=== PATIENT | male | born 1975 | race African-American/Black ===

== ENCOUNTER 2017-11-26 02:36 | Inpatient (IN) | payer OTHER ==
[2017-11-26] MEDS ORDERED: Pantoprazole 40 MG VIAL ONE (03:20)
[2017-11-26] MEDS ORDERED: Water For Inject, Bacteriostat 30 ML ONE (03:20)
[2017-11-26] MEDS ORDERED: Labetalol HCl 100 MG/20 ML VIAL ONE ×2 (03:20→06:41)
[2017-11-26] MEDS ORDERED: Metoclopramide HCl 10 MG/2 ML VIAL ONE ×2 (03:20→11:47)
[2017-11-26 03:51] LABS: CO2 Tension (PvCO2) 41.8 mmHg (41.0-51.0); O2 Tension (PvO2) 63.4 mmHg (35.0-45.0); pH (Venous) 7.325 (7.35-7.45)
[2017-11-26 03:52] LABS: Bicarbonate (HCO3v) 21.8 mmol/L (1.0-85.0)
[2017-11-26 03:53] LABS: Hemoglobin - Calc 8.9 g/dL (12.0-18.0); Potassium 4.5 mmol/L (3.4-4.7); T. Carbon Dioxide 23.1 mmol/L (1.0-85.0); vO2 Saturation-calc 90.1 % (94-98)
[2017-11-26 03:54] LABS: Calcium, Ionized 1.14 mmol/L (1.12-1.32)
[2017-11-26 04:01] LABS: ALT (SGPT) 15 U/L (8-55); AST (SGOT) 20 U/L (5-34); Albumin 3.5 g/dL (3.5-5.0); Alkaline Phosphatase 83 U/L (40-150); Anion Gap 12 mmol/L (10-20); BUN (Urea Nitrogen) 45 mg/dL (8.9-20.6); Bilirubin, Total 0.5 mg/dL (0.2-1.2); CK (CPK) 666 U/L (30-200); Calc. Creatinine Clearance 0 mL/min (70-130); Calcium 8.4 mg/dL (7.8-10.44); Carbon Dioxide 20 mmol/L (22-29); Chloride 110 mmol/L (98-107); Estimated GFR-MDRD 14; Globulin 3.2 g/dL (2.4-3.5); Glucose 126 mg/dL (70-105); Lipase 57 U/L (8-78); Potassium 4.6 mmol/L (3.5-5.1); Protein, Total 6.7 g/dL (6.0-8.3); Sodium 137 mmol/L (136-145)
[2017-11-26 04:02] LABS: Troponin I 0.022 ng/mL (< 0.028)
[2017-11-26 04:05] LABS: Band 1 % (5-11); Hemoglobin 8.8 g/dL (14.0-18.0); Lymphocytes 19 % (21-51); MDiff Complete? YES; Mean Corpuscular HGB CONC 33.3 g/dL (32.0-36.0); Mean Corpuscular Hemoglobin 27.5 pg (27.0-31.0); Mean Corpuscular Volume 82.7 fl (80.0-94.0); Mean Platelet Volume 5.9 fL (7.4-10.4); Monocytes 4 % (0-10); Neutrophil 76 % (42-75); Ovalocytes SLIGHT = 2-5 cells (100X) (0-1/hpf); Platelet Count 227 thou/uL (130-400); Red Blood Cell (RBC) Count 3.21 mill/uL (4.70-6.10); White Blood Cell (WBC) Count 8.2 thou/uL (4.8-10.8)
[2017-11-26 04:06] LABS: CKMB 7.3 ng/mL (0-6.6)
[2017-11-26] MEDS ORDERED: Acetaminophen 325 MG TAB PO PRN (07:07)
[2017-11-26] MEDS ORDERED: Ondansetron HCl/PF 4 MG/2 ML Vial IVP PRN (07:07)
[2017-11-26] MEDS ORDERED: HumaLOG 300 UNITS/3 ML VIAL SC PRN (07:09)
[2017-11-26] MEDS ORDERED: Dextrose 50% Abboject 50 ML SYRINGE SLOW IVP PRN (07:09)
[2017-11-26] MEDS ORDERED: Labetalol HCl 100 MG/20 ML VIAL SLOW IVP PRN (07:09)
[2017-11-26] MEDS ORDERED: Dextrose 5% in Water 1,000 ML IV PRN (07:09)
--- NOTE | 2017-11-26 07:28 | PDOC.FPRHP ---
- History of Present Illness Chief Complaint: n/v, abdominal pain History of Present Illness: Michael Montano is a 42 yo with PMH of HTN, Type I DM, and CKD stage 4 who presents as a direct admit from the [facility] ER. Patient started having symptoms of nausea and vomiting and abdominal pain 4 days ago. He went to the [facility] where he was treated and discharged yesterday. His symptoms have continued since discharge from hospital so he went to the [facility] ER today. States that his abdominal pain is location in the middle quadrant, does not radiate. Characterizes it as dull aching pain that is constant, rated as 4/10. Worse with eating. States that when he tries to eat food, he feels like the food gets stuck, he becomes nauseated and vomits. He states that he tolerated PO liquid fine. He has had decreased appetite over the last few days. He denies fevers, chest pain, dyspnea, changes in bowel habits, GI bleeding. ED Course: Received reglan, 1L NS, labetalol 10 mg IV, and protonix 40 mg IV in the the [facility] er - Allergies/Adverse Reactions Allergies Allergy/AdvReac Type Severity Reaction Status Date / Time No Known Drug Allergies Allergy Verified 11/26/17 07:30 - Home Medications Medication Instructions Recorded Confirmed Type Lisinopril 20 mg PO DAILY 09/12/13 11/26/17 History NovoLOG Mix 70/30 Flexpen 20 units SC TID-WM 09/12/13 11/26/17 History Amlodipine [Norvasc] 5 mg PO DAILY 11/26/17 11/26/17 History Insulin Glargine,Hum.Rec.Anlog 40 unit SQ QAM 11/26/17 11/26/17 History [Lantus Solostar] Metoprolol Succinate 25 mg PO DAILY 11/26/17 11/26/17 History - History PMHx: CKD stage 4, HTN, Type I DM PSHx: 2 cataract surgeries, Left great toe and left second toe amputation FHx: unknown Social: denied - Review of Systems General: reports: weight/appetite/sleep changes. denies: fever/chills, night sweats Eyes: denies: eye pain, vision changes ENT: denies: nasal congestion, rhinorrhea Respiratory: denies: cough, congestion, shortness of breath, exercise intolerance Cardiovascular: denies: chest pain, palpitation, edema, paroxysmal nocturnal dyspnea Gastrointestinal: reports: nausea, vomiting, abdominal pain. denies: diarrhea, constipation, GI bleeding Genitourinary: denies: incontinence, dysuria, polyuria Skin: denies: rashes, lesions, jaundice Musculoskeletal: denies: pain, tenderness, stiffness, swelling, arthritis/ arthralgias Neurological: denies: numbness, syncope, seizure Psychological: denies: anxiety, depression - Vital signs BP: 191/99 HR: 94 RR: 18 Tmax: 98.7 Pox: 95% on RA Wt: - Physical Exam Constitutional: NAD, awake, alert and oriented, well developed HEENT: normocephalic and atraumatic, EOMI, conjunctiva clear, no scleral icterus , grossly normal vision, TM's clear and intact, grossly normal hearing, normal nasal mucosa, MMM, oropharynx clear -HEENT: pinpoint pupils Neck: supple, FROM, trachea midline, no JVD Chest: no-tender to palpation Heart: RRR, normal S1/S2, no murmurs/rubs/gallops, pulses present Lungs: CTAB, no respiratory distress, good air movement, no rales/rhonchi, no wheezing Abdomen: soft, non-tender (adbomen had mild TTP, worse in middle quadrant), bowel sounds present, no masses/distention Musculoskeletal: normal structure, normal tone, ROM grossly normal Neurological: no focal deficit, CN II-XII intact, normal sensation Skin: no rash/lesions, good turgor, capillary refill <2 seconds Heme/Lymphatic: no unusual bruising or bleeding, no purpura Psychiatric: normal mood and affect, good judgment and insight, intact recent and remote memory FMR H&P: Results - Labs Result Diagrams: 11/26/17 03:30 11/26/17 03:30 Lab results: WBC 8.2 thou/uL (4.8-10.8) 11/26/17 03:30 Hgb 8.8 g/dL (14.0-18.0) L 11/26/17 03:30 Hct 26.5 % (42.0-52.0) L 11/26/17 03:30 MCV 82.7 fl (80.0-94.0) 11/26/17 03:30 Plt Count 227 thou/uL (130-400) 11/26/17 03:30 Band Neuts % (Manual) 1 % (5-11) L 11/26/17 03:30 VBG pCO2 41.8 mmHg (41.0-51.0) 11/26/17 03:30 VBG pO2 63.4 mmHg (35.0-45.0) H 11/26/17 03:30 Sodium 137 mmol/L (136-145) 11/26/17 03:30 Potassium 4.6 mmol/L (3.5-5.1) 11/26/17 03:30 Chloride 110 mmol/L (98-107) H 11/26/17 03:30 Carbon Dioxide 20 mmol/L (22-29) L 11/26/17 03:30 BUN 45 mg/dL (8.9-20.6) H 11/26/17 03:30 Creatinine 5.40 mg/dL (0.7-1.3) H 11/26/17 03:30 Glucose 126 mg/dL (70-105) H 11/26/17 03:30 Calcium 8.4 mg/dL (7.8-10.44) 11/26/17 03:30 Total Bilirubin 0.5 mg/dL (0.2-1.2) 11/26/17 03:30 AST 20 U/L (5-34) 11/26/17 03:30 ALT 15 U/L (8-55) 11/26/17 03:30 Alkaline Phosphatase 83 U/L (40-150) 11/26/17 03:30 Creatine Kinase 666 U/L (30-200) H 11/26/17 03:30 CK-MB (CK-2) 7.3 ng/mL (0-6.6) H* 11/26/17 03:30 Serum Total Protein 6.7 g/dL (6.0-8.3) 11/26/17 03:30 Albumin 3.5 g/dL (3.5-5.0) 11/26/17 03:30 Lipase 57 U/L (8-78) 11/26/17 03:30 - EKG Interpretation EKG: NSR, no ST changes FMR H&P: A/P - Problem List (1) Hypertensive urgency Current Visit: Yes Status: Acute Code(s): I16.0 - HYPERTENSIVE URGENCY (2) Gastroparesis Current Visit: Yes Status: Acute Code(s): K31.84 - GASTROPARESIS (3) Type I diabetes mellitus Current Visit: Yes Status: Acute (4) HTN (hypertension) Current Visit: Yes Status: Acute Code(s): I10 - ESSENTIAL (PRIMARY) HYPERTENSION (5) CKD stage 4 due to type 2 diabetes mellitus Current Visit: Yes Status: Acute Code(s): E11.22 - TYPE 2 DIABETES MELLITUS W DIABETIC CHRONIC KIDNEY DISEASE; N18.4 - CHRONIC KIDNEY DISEASE, STAGE 4 ( SEVERE) - Plan (1) Hypertensive Urgency: Admit to tele. BPs in the 190s/100s in the ED. Denies vision changes, headache, chest pain. Continuous cardiac monitoring. IV labetalol PRN as patient has been borderline tachycardic. Trend cardiac enzymes. EKG showed normal sinus rhythm at outside ED. Will check labs CBC, CMP , TSH. (2) Gastroparesis: CT abd at outside facility read no acute intraabdominal findings, b/l symmetric perinephric stranding, along with multiple mildly enlarged para-aortic lymph nodes and b/l dependent atelectasis. Likely secondary to uncontrolled type I diabetes mellitus. Patient is having normal frequency of BMs, but has had persistent n/v despite treatment. Will start Q8H reglan. IVFs NS @135 ml/hr. Check labs. Obtain records from meds. Continue protonix. Normal lipase at outside ER. (3) CKD stage 4: patient may have an yaw on ckd. Will review records. Start IVFs NS @135 ml/hr. Obtain baseline labs. CBC, CMP, HgbA1c. Consult nephrology. Dr. Ellsworth is his gas meter checker. Patient not uremic, electrolytes are within normal limits. (4) Type I DM: Continue home meds, check hgA1c (5) HTN: Continue home meds CODE STATUS: FULL CODE Disposition/LOS: Admit to Tele, dispo 2-3 days. FMR H&P: Upper Level - Plan Date/Time: 11/26/17 0723 42 yr old male with hx of DM type I vs II, CKD stage IV who presents to the ER with c/o of nausea and vomiting for 4 days. He apparently was hospitalized for last 4 days at the [facility] and was discharged on reglan for intractable nausea and vomiting of undetermined etiology. He states the pain is dull, chronic and achy in nature. It does appear to be worsened by food as he has not tolerated much PO intake this week. He vomits daily. He does not report alcohol, drug, or tobacco use. Last BM just before entering room and within last 24 hours as well. Denies hematemesis. Gen: No acute distress, well appearing CV: 2/6 systolic murmur heard best in left upper sternal border Lungs: CTAB no W/R/R Abd: mildy tender in mid epigastric region, no guarding, no rigidity, BS normal active. CT Abd/Pelvis w/o contrast- essentially unremarkable abdominal organs but is has some para aortic lymphadenopathy with largest measuring 11 mm. 42 yr old AAM with intractable nausea and vomiting and elevated BP. 1.HTN urgency- will cover with IV labetalol until taking PO. Then will restart on home meds once med rec complete. Trend trops. 2.N/V/abd pain- Will fluid resuscitate and offer IV reglan since gastroparesis is leading diagnosis at this time with clinical and medical history. s/p cholecystectomy. DDx includes gastroparesis, peptic ulcer, gastritis, pancreatitis. If not improved, may need GI consult but will hold off at this time. Does not appear he had EGD during alst hospitalization. No acute abdomen at this time. Do not suspect SBO since BM regular. Pancreas wnl on CT and lipase wnl. 3.IDDM- will restart his home insulin regimen and monitor BG. no evidence for DKA at this time. 4.CKD Stage IV- will consult nephrology. Renally dose medications. 5.Para aortic lymphadenopathy 6.Mild rhabdo- will give gentle IV fluids and trend. 7.Ppx- SCDs 8.Clear liquid diet 9.Full code I, [Sheila Goldstein], have evaluated this patient and agree with findings/plan as outlined by manager internet resident. Pertinent changes/additions are listed here. Attending Addendum - Attending Addendum Date/Time: 11/26/17 1111 I personally evaluated the patient and discussed the management with Dr. Velez/ Angelita. I agree with the History, Examination, Assessment and Plan documented above with any addition or exceptions noted below. Patient with history of recent hospitalization for intractable N/V, as well as DM, HTN, CKD4 here for continued N/V and diet intolerance. He complains of midepigastric pain that is not affected by meals, though he has only been taking clears recently. Denies fevers, chills, bowel movement changes, chest pain, shortness of breath, headache. Review of records shows that he was discharged from [facility] without a definitive diagnosis on Phenergan and Zofran. He improved at the ER this morning with Reglan. There is possibly a component of gastroparesis verus PUD versus gastritis present. He also has severely elevated BP without symptoms. It responded well to Labetalol in the ER but is now elevated again. He will be admitted for nausea/vomiting thought 2/2 gastroparesis. Reglan, IVF, and CLD. If does not improve, will need GI consult versus gastric emptying studies. Labs not consistent with pancreatic/liver/ gallbladder pathology and CT does not show any major pathology. He will be admitted to telemetry due to elevated BP, work to get those under control, and trend trops. His CKD4 is mildly worse and his Retail Analyst will be consulted.
--- NOTE | 2017-11-26 08:05 | CT ---
PRELIMINARY REPORT/[facility]/EMERGENCY AFTER HOURS PROCEDURE: EXAM: CT Abdomen and Pelvis Without Intravenous Contrast CLINICAL HISTORY: The patient is a 42 years male; Pain; Abdominal pain; Patient HX: Pt w/ n/v and abd pain since . He was admitted to the med and d/c'd yesterday. He cont to have the same pain with n/v since d/c. TECHNIQUE: Axial computed tomography images of the abdomen and pelvis without intravenous contrast. Coronal reformatted images were created and reviewed. COMPARISON: No relevant prior studies available. FINDINGS: Lung bases: Bibasilar dependent atelectasis, right greater than left. No focal consolidation. ABDOMEN: Liver: Unremarkable. Gallbladder and bile ducts: Cholecystectomy. Pancreas: Unremarkable. No ductal dilation. Spleen: Unremarkable. No splenomegaly. Adrenals: Unremarkable. No mass. Kidneys and ureters: No renal or ureteral calculi. No hydroureteronephrosis. Nonspecific bilateral pe rinephric stranding. Stomach and bowel: Unremarkable. No obstruction. No mucosal thickening. Appendix: No findings to suggest acute appendicitis. PELVIS: Bladder: Unremarkable. No stones. Reproductive: Unremarkable as visualized. ABDOMEN and PELVIS: Intraperitoneal space: No free fluid or fluid collection. No free air. Bones/joints: No acute or aggressive osseous lesions. Soft tissues: Unremarkable. Vasculature: Arterial calcifications. No abdominal aortic aneurysm. Lymph nodes: Nonspecific mildly enlarged bilateral para-aortic nodes, primarily on the left with the largest measuring up to 11 mm in short axis. IMPRESSION: 1. No definite acute intra-abdominal findings on noncontrast imaging. Bilateral symmetrical perinephr ic stranding is nonspecific and may be chronic. No stones or hydronephrosis. 2. There are multiple mildly enlarged para-aortic nodes, primarily on the left with largest measuring up to 11 mm in short axis. These could be related to infection, not necessarily acute. Correlate cli nically and with followup as needed to exclude malignancy including lymphoma. No lymphadenopathy seen otherwise. 3. Bilateral dependent atelectasis, right greater than left with no lobar consolidation. Thank you for allowing us to participate in the care of your patient. Dictated and Authenticated by: Abilio Quinn MD 11/26/2017 4:59 AM Central Time ([place] & [place]) FINAL REPORT CT ABDOMEN AND PELVIS WITHOUT CONTRAST: HISTORY: Abdominal pain. COMPARISON: None. FINDINGS/IMPRESSION: Findings and impression are concordant with the preliminary report. The opacity in the right lower l obe may reflect an underlying focus of consolidation, early. POS: [facility]
[2017-11-26 08:19] LABS: Magnesium 1.9 mg/dL (1.6-2.6); Phosphorus 4.2 mg/dL (2.3-4.7)
[2017-11-26 08:26] LABS: Troponin I 0.015 ng/mL (< 0.028)
[2017-11-26 08:38] LABS: CKMB 7.2 ng/mL (0-6.6)
[2017-11-26] MEDS ORDERED: Ondansetron HCl/PF 4 MG/2 ML Vial ONE (08:43)
[2017-11-26] MEDS ORDERED: LISINOPRIL 20 MG PO SCH (09:00)
[2017-11-26] MEDS ORDERED: Non-Formulary Item 1 EACH (Insulin Glargine,Hum.Rec.Anlog 20 UNIT) SQ SCH (09:00)
[2017-11-26 11:48] LABS: CKMB 5.3 ng/mL (0-6.6); Troponin I 0.013 ng/mL (< 0.028)
[2017-11-26] MEDS ORDERED: NOVOLOG MIX SC SCH (12:00)
[2017-11-26] MEDS: Insulin NPH/Reg Insulin Hm 300 UNITS/3 ML VIAL SC SCH ×2 (12:00→18:36)
[2017-11-26] MEDS: Sodium Chloride 0.9% 1,000 ML IV SCH ×3 (12:40→18:36)
[2017-11-26] MEDS: Amlodipine 5 MG TAB PO SCH (15:50)
[2017-11-26] MEDS: Lisinopril 20 MG TAB PO SCH (15:51)
[2017-11-26] MEDS: Insulin Detemir 100 UNITS/ML 20 UNITS in Pre-Filled Syringe 1 EACH SC SCH (15:51)
[2017-11-26] MEDS: Metoclopramide HCl 10 MG/2 ML VIAL IVP SCH ×2 (15:52→22:42)
[2017-11-27] MEDS: Sodium Chloride 0.9% 1,000 ML IV SCH ×3 (01:59→16:31)
[2017-11-27 05:25] LABS: #Basophils 0.1 thou/uL (0.0-0.2); #Eosinphils 0.1 thou/uL (0.0-0.7); #Lymphocytes 1.8 thou/uL (1.20-3.40); #Monocytes 0.6 thou/uL (0.11-0.59); #Neutrophils 4.5 thou/uL (1.40-6.50); %Basophils 0.9 % (0.0-1.0); %Lymphocytes 25.6 % (21.0-51.0); %Monocytes 8.2 % (0.0-10.0); %Neutrophils 64.3 % (42.0-75.0); Hemoglobin 8.3 g/dL (14.0-18.0); Mean Corpuscular HGB CONC 33.2 g/dL (32.0-36.0); Mean Corpuscular Hemoglobin 29.6 pg (27.0-31.0); Mean Corpuscular Volume 89.1 fl (80.0-94.0); Mean Platelet Volume 6.8 fL (7.4-10.4); Platelet Count 221 thou/uL (130-400); RBC Distribution Width 13.5 % (11.5-14.5); White Blood Cell (WBC) Count 6.9 thou/uL (4.8-10.8)
[2017-11-27 05:35] LABS: Anion Gap 9 mmol/L (10-20); BUN (Urea Nitrogen) 44 mg/dL (8.9-20.6); Calc. Creatinine Clearance 0 mL/min (70-130); Carbon Dioxide 19 mmol/L (22-29); Chloride 113 mmol/L (98-107); Estimated GFR-MDRD 15; Glucose 112 mg/dL (70-105); Sodium 137 mmol/L (136-145)
[2017-11-27 06:13] VITALS: BMI 29.1
[2017-11-27] MEDS: Metoclopramide HCl 10 MG/2 ML VIAL IVP SCH (06:15)
--- NOTE | 2017-11-27 07:50 | PDOC.FM ---
- Subjective Subjective: Michael Montano is a 42 yo with PMH of HTN, Type I DM, and CKD stage 4 who was admitted for intractable n/v 2/2 likely gastroparesis. He states that he has not vomited since yesterday morning. He is tolerating his clear liquid diet. He has no specific concerns today. He denies all symptoms in ROS. There were no acute events over night. - Objective MAR Reviewed: Yes Vital Signs & Weight: Vital Signs (12 hours) Temp Pulse Resp BP Pulse Ox 11/27/17 05:29 98.5 F 89 20 176/83 H 93 L Weight Weight 100.199 kg I&O: 11/26/17 11/27/17 11/28/17 06:59 06:59 06:59 Intake Total 2620 Output Total 350 Balance 2270 Result Diagrams: 11/27/17 04:51 11/27/17 04:51 <Steven Reed - Last Filed: 11/27/17 07:47> - Objective Vital Signs & Weight: Vital Signs (12 hours) Temp Pulse Resp BP Pulse Ox 11/27/17 09:37 94 11/27/17 08:05 99.0 F 94 16 177/84 H 94 L 11/27/17 05:29 98.5 F 89 20 176/83 H 93 L Weight Weight 100.199 kg I&O: 11/26/17 11/27/17 11/28/17 06:59 06:59 06:59 Intake Total 2620 Output Total 350 Balance 2270 Result Diagrams: 11/27/17 04:51 11/27/17 04:51 <Jamaal Rosales - Last Filed: 11/27/17 11:05> Phys Exam - Physical Examination Constitutional: NAD HEENT: moist MMs, sclera anicteric Neck: supple, full ROM Respiratory: clear to auscultation bilateral Cardiovascular: RRR Systolic murmur that radiates to carotid. Gastrointestinal: soft, non-tender, no distention, positive bowel sounds Musculoskeletal: no edema Neurological: non-focal, normal sensation, moves all 4 limbs Psychiatric: normal affect, A&O x 3 Skin: no rash <Steven Reed - Last Filed: 11/27/17 07:47> Dx/Plan (1) CKD stage 4 due to type 2 diabetes mellitus Code(s): E11.22 - TYPE 2 DIABETES MELLITUS W DIABETIC CHRONIC KIDNEY DISEASE; N18.4 - CHRONIC KIDNEY DISEASE, STAGE 4 (SEVERE) Status: Acute (2) Gastroparesis Code(s): K31.84 - GASTROPARESIS Status: Acute (3) HTN (hypertension) Code(s): I10 - ESSENTIAL (PRIMARY) HYPERTENSION Status: Acute (4) Hypertensive urgency Code(s): I16.0 - HYPERTENSIVE URGENCY Status: Acute (5) Type I diabetes mellitus Status: Acute - Plan Plan: Hypertensive Urgency: - BP somewhat improved into 160-170 ranged. - Will change metoprolol to coreg for better bp control - trops neg - follow up outpt Gastroparesis: - no vomiting for 24 hours. - advance diet today - pt appears to be euvolemic - CT abd at outside facility read no acute intraabdominal findings, b/l symmetric perinephric stranding, along with multiple mildly enlarged para- aortic lymph nodes and b/l dependent atelectasis. - Likely secondary to uncontrolled type I diabetes mellitus. - Q8H reglan. continue protonix - Stop IVF Systolic murmur - concern for . pt states that he may have had an echo at the [facility] - currently asymptomatic - will need outpt follow up CKD stage 4: - Cr improved. - Consult nephro Type I DM: - Continue home meds HTN: Continue home meds Dispo: pt doing well. Will advance diet today, he may be able to dc this afternoon pending bp and diet <Steven Reed - Last Filed: 11/27/17 07:47> (1) Hypertensive urgency Code(s): I16.0 - HYPERTENSIVE URGENCY Status: Acute (2) Gastroparesis Code(s): K31.84 - GASTROPARESIS Status: Acute (3) Type I diabetes mellitus Status: Acute (4) HTN (hypertension) Code(s): I10 - ESSENTIAL (PRIMARY) HYPERTENSION Status: Acute (5) CKD stage 4 due to type 2 diabetes mellitus Code(s): E11.22 - TYPE 2 DIABETES MELLITUS W DIABETIC CHRONIC KIDNEY DISEASE; N18.4 - CHRONIC KIDNEY DISEASE, STAGE 4 (SEVERE) Status: Acute <Jamaal Rosales - Last Filed: 11/27/17 11:05> Attending Addendum - Attending Addendum Date/Time: 11/27/17 1103 I personally evaluated the patient and discussed the management with Dr. Reed. I agree with the History, Examination, Assessment and Plan documented above with any addition or exceptions noted below. Patient reports feeling well this morning. He states he feels better than he has in days and did not feel this well during his previous hospitalization. His Reglan will be transitioned to PO and PRN. He is tolerating CLD well and will be advanced. Making minor changes to BP meds, but if BP controlled this afternoon and tolerates normal diet, he can be discharged home later today. His severe CKD is stable and will need outpatient follow up. <Jamaal Rosales - Last Filed: 11/27/17 11:05>
[2017-11-27] MEDS ORDERED: Metoclopramide HCl 10 MG TAB PO PRN (08:48)
[2017-11-27] MEDS ORDERED: FLU VACC QS2017-18 36 mo. & older 0.5 ML SYRINGE IM ONE (09:00)
[2017-11-27] MEDS: Carvedilol 3.125 MG TAB PO SCH ×2 (09:37→17:31)
[2017-11-27] MEDS: Lisinopril 20 MG TAB PO SCH (09:37)
[2017-11-27] MEDS: Insulin Detemir 100 UNITS/ML 20 UNITS in Pre-Filled Syringe 1 EACH SC SCH (09:37)
[2017-11-27] MEDS: Amlodipine 5 MG TAB PO SCH (09:37)
[2017-11-27] MEDS: Insulin NPH/Reg Insulin Hm 300 UNITS/3 ML VIAL SC SCH ×3 (09:38→17:33)
[2017-11-27 17:31] VITALS: BP 170/83; TEMP 98.4
--- NOTE | 2017-11-28 09:06 | CON ---
DATE OF CONSULTATION: 11/27/2017 REASON FOR CONSULTATION: Stage 5 chronic kidney disease. HISTORY OF PRESENT ILLNESS: This is a patient 42-year-old gentleman who was recently discharged from the [facility], presented to the hospital with uncontrolled nausea, vomiting as well as possible rhabdomyolysis. The patient was also complaining of abdominal pain. The patient at this time denies any chest pain, orthopnea or PND, but has some difficulty breathing. PAST MEDICAL HISTORY: Significant for hypertension, CKD stage 5, anemia, cataract surgery, left toe amputation. FAMILY HISTORY: Negative for ESRD. SOCIAL HISTORY: No alcohol or drug use. ALLERGIES: Reviewed. REVIEW OF SYSTEMS: Fifteen-point review of systems was performed and negative except for positives n oted above. GENERAL: Weakness- HEAD: Headache- NECK: No swelling or lumps. NOSE: No epistaxis or discharge. EYES: No diplopia or pain. RESPIRATORY: Dyspnea- CARDIOVASCULAR: Chest pain- GASTROINTESTINAL: Nausea- /LOGISTICS PLANNER: Hematuria- MUSCULOSKELETAL: No joint pain. NEUROPSYCHIATIC SYSTEMS: No suicidal ideation. No ideation. SKIN: Denies any rash or ulcer. CONSTITUTIONAL: No fever or chills. PHYSICAL EXAMINATION: GENERAL: Patient is awake, alert. VITAL SIGNS: Afebrile, pulse 94, breathing 16, blood pressure 177/83. GENERAL APPEARANCE AND MENTAL STATUS: Fair. HEAD/NECK: Normocephalic. Atraumatic. EYES: EOMI. No deformity. EARS: Clear. No ulcers. NOSE: Intact. No lesions. MOUTH: Clear. No discharge. THROAT: Clear. No exudate. LUNGS: Clear. No crackles. CARDIAC: S1, S2. No rub. ABDOMEN: Benign. BS+. GENITALIA/RECTUM: Crump absent. BACK/EXTREMITIES: Edema 0+ Ulcer- NEUROLOGICAL: Alert and motor intact. SKIN: Rash- Bruise- LYMPHATICS: Edema- Ulcer- LABORATORY: Creatinine is 5.04, potassium is 4, bicarb 19. ASSESSMENT AND RECOMMENDATIONS: 1. Chronic kidney disease stage 4-5 with intractable nausea and vomiting. We would recommend renal replacement therapy. The patient follows up with Dr. Ellsworth, so he will come see him tomorrow. 2. Anemia, stable. 3. Medications based on GFR are appropriate. 4. Hypertension. We would recommend starting Toprol 25 mg daily. This was a medication that was st arted recently. The patient is tachycardic and will need better blood pressure control.
--- NOTE | 2017-11-29 10:03 | DIS-2 ---
DATE OF ADMISSION: 11/26/2017 DATE OF DISCHARGE: The patient left AMA on 11/27/2017. ADMITTING ATTENDING: Dr. Jamaal Rosales RESIDENT: Steven Reed D.O. CONSULTS: Neil Abel M.D., Nephrology PROCEDURES: None. DISCHARGE MEDICATIONS: None. DISCONTINUED MEDICATIONS: Metoprolol succinate 25 mg p.o. daily. DISCHARGE MEDICATIONS: NovoLog 70/30 20 units subcu t.i.d., lisinopril 20 mg p.o. daily, Lantus 40 u nits subcu q.a.m., Norvasc 5 mg p.o. daily, Coreg 3.125 mg p.o. b.i.d., Reglan 10 mg p.o. q.8h. p.r.n . nausea, vomiting. Zofran 4 mg IV q.6h. p.r.n. HOSPITAL COURSE: This is a 42-year-old male who was admitted with a history of hypertension, type 1 diabetes, chronic kidney disease, who was admitted as a direct admit from [facility] after being discharged 2 days prior from [facility]. The patient was admitted for intractable nausea and vomiting with abdominal pain for approximately 4 days. He has got a long history of unco ntrolled type 2 diabetes and the presumptive diagnosis was gastroparesis. When admitted the patient was started on Reglan and with significant symptomatic improvement. The patient was given IV resusci tation due to being mildly dehydrated over the first 24 hours of admission. By the second day of adm ission, the patient's diet was started with clears and was able to be advanced slowly. However, oziel or to total resolution of symptoms, the patient left against medical advice. Regarding hypertension, the patient had been recently started on metoprolol; however, still had signi ficant elevations of his blood pressure; therefore, the metoprolol was changed for Coreg. However, w e were unable to determine how this was affecting the patient's blood pressure because he left agains t medical advice prior to being able to determine the effects of the new medication. DISPOSITION: Stable. DISCHARGE INSTRUCTIONS: None. The patient left AMA. DISCHARGE LOCATON: None, the patient left AMA. DISCHARGE DIET: None. The patient left AMA. FOLLOW UP: None, the patient left AMA.
== END 2017-11-27 21:01 | disposition home or self-care (01) | DRG 305 ==
LOC: SCSER 02:36 → ERHOLD 05:10 → 2NO 12:31
PROVIDERS: ADMIT Student in an Organized Health Care Education/Training Program; ATTEND Student in an Organized Health Care Education/Training Program
DX: I16.0 Hypertensive urgency (principal); E10.22 Type 1 diabetes mellitus with diabetic chronic kidney disease; K31.84 Gastroparesis; E10.43 Type 1 diabetes mellitus with diabetic autonomic (poly)neuropathy; M62.82 Rhabdomyolysis; N18.5 Chronic kidney disease, stage 5; Z79.4 Long term (current) use of insulin; R01.1 Cardiac murmur, unspecified; I12.0 Hypertensive chronic kidney disease with stage 5 chronic kidney disease or end stage renal disease; D63.1 Anemia in chronic kidney disease
CPT/HCPCS: 36415; 36416; 74176; 80048; 80053; 82010; 82330; 82550; 82553; 82803; 83690; 83735; 84100; 84443; 84484; 85025; 93005; 96365; 96366; 96375; A4216; C9113; J1815; J2405; J2765

== ENCOUNTER 2018-06-08 00:41 | Emergency (ER) | payer MEDICARE, MEDICAID ==
[2018-06-08 01:32] LABS: Band 1 % (5-11); Eosinophils 8 % (0-10); Hemoglobin 9.9 g/dL (14.0-18.0); Lymphocytes 29 % (21-51); MDiff Complete? YES; Mean Corpuscular HGB CONC 33.3 g/dL (32.0-36.0); Mean Corpuscular Hemoglobin 28.8 pg (27.0-31.0); Mean Corpuscular Volume 86.6 fL (78.0-98.0); Monocytes 9 % (0-10); Neutrophil 53 % (42-75); Ovalocytes MODERATE= 6-15 cells (100X) (0-1/hpf); Platelet Count 208 thou/uL (130-400); RBC Distribution Width 13.6 % (11.5-14.5); Red Blood Cell (RBC) Count 3.42 mill/uL (4.70-6.10); White Blood Cell (WBC) Count 8.3 thou/uL (4.8-10.8)
[2018-06-08 01:36] LABS: ALT (SGPT) 18 U/L (8-55); AST (SGOT) 22 U/L (5-34); Albumin 3.4 g/dL (3.5-5.0); Alkaline Phosphatase 83 U/L (40-150); Anion Gap 14 mmol/L (10-20); BUN (Urea Nitrogen) 58 mg/dL (8.9-20.6); Bilirubin, Total 0.4 mg/dL (0.2-1.2); Calc. Creatinine Clearance 0 mL/min (70-130); Calcium 8.3 mg/dL (7.8-10.44); Carbon Dioxide 17 mmol/L (22-29); Estimated GFR-MDRD 12; Globulin 3.5 g/dL (2.4-3.5); Protein, Total 6.9 g/dL (6.0-8.3)
[2018-06-08 01:38] LABS: Glucose 52 mg/dL (70-105)
[2018-06-08 01:39] LABS: Chloride 112 mmol/L (98-107); Potassium 4.4 mmol/L (3.5-5.1); Sodium 139 mmol/L (136-145)
== END 2018-06-08 01:56 | disposition home or self-care (01) ==
LOC: SCSER 00:41
DX: E11.649 Type 2 diabetes mellitus with hypoglycemia without coma (principal); I12.9 Hypertensive chronic kidney disease with stage 1 through stage 4 chronic kidney disease, or unspecified chronic kidney disease; N18.4 Chronic kidney disease, stage 4 (severe); D63.1 Anemia in chronic kidney disease; Z79.4 Long term (current) use of insulin; Z79.899 Other long term (current) drug therapy; Z79.891 Long term (current) use of opiate analgesic
CPT/HCPCS: 36416; 80053; 85025; 99284

== ENCOUNTER 2018-07-28 00:01 | Emergency (ER) | payer MEDICARE, MEDICAID ==
[2018-07-28] MEDS ORDERED: diphenhydrAMINE 25 MG CAP ONE (00:30)
== END 2018-07-28 00:43 | disposition home or self-care (01) ==
LOC: SCSER 00:01
DX: L29.9 Pruritus, unspecified (principal); I10 Essential (primary) hypertension; I12.9 Hypertensive chronic kidney disease with stage 1 through stage 4 chronic kidney disease, or unspecified chronic kidney disease; E11.22 Type 2 diabetes mellitus with diabetic chronic kidney disease; N18.4 Chronic kidney disease, stage 4 (severe); D63.1 Anemia in chronic kidney disease; Z79.899 Other long term (current) drug therapy; Z99.2 Dependence on renal dialysis; Z79.4 Long term (current) use of insulin
CPT/HCPCS: 99282

== ENCOUNTER 2018-08-15 12:38 | Emergency (ER) | payer MEDICAID, MEDICARE ==
[2018-08-15] MEDS ORDERED: Acetaminophen 500 MG TAB ONE ×2 (12:57→13:00)
[2018-08-15 13:27] LABS: #Basophils 0.1 thou/uL (0.0-0.2); #Lymphocytes 0.7 thou/uL (1.20-3.40); #Monocytes 0.9 thou/uL (0.11-0.59); #Neutrophils 16.7 thou/uL (1.40-6.50); %Basophils 0.6 % (0.0-1.0); %Eosinophils 0.1 % (0.0-10.0); %Lymphocytes 3.8 % (21.0-51.0); %Monocytes 4.7 % (0.0-10.0); %Neutrophils 90.9 % (42.0-75.0); Hemoglobin 9.1 g/dL (14.0-18.0); Mean Corpuscular HGB CONC 33.3 g/dL (32.0-36.0); Mean Corpuscular Hemoglobin 28.7 pg (27.0-31.0); Mean Corpuscular Volume 86.2 fL (78.0-98.0); Mean Platelet Volume 6.3 fL (7.4-10.4); Platelet Count 197 thou/uL (130-400); RBC Distribution Width 13.1 % (11.5-14.5); Red Blood Cell (RBC) Count 3.15 mill/uL (4.70-6.10); White Blood Cell (WBC) Count 18.4 thou/uL (4.8-10.8)
[2018-08-15 13:39] LABS: ALT (SGPT) 16 U/L (8-55); AST (SGOT) 18 U/L (5-34); Albumin 3.1 g/dL (3.5-5.0); Alkaline Phosphatase 100 U/L (40-150); Anion Gap 13 mmol/L (10-20); BUN (Urea Nitrogen) 31 mg/dL (8.9-20.6); Bilirubin, Total 0.7 mg/dL (0.2-1.2); Calc. Creatinine Clearance 0 mL/min (70-130); Calcium 7.9 mg/dL (7.8-10.44); Carbon Dioxide 28 mmol/L (22-29); Chloride 100 mmol/L (98-107); Estimated GFR-MDRD 13; Globulin 3.2 g/dL (2.4-3.5); Glucose 220 mg/dL (70-105); Potassium 3.3 mmol/L (3.5-5.1); Protein, Total 6.3 g/dL (6.0-8.3); Sodium 138 mmol/L (136-145)
--- NOTE | 2018-08-15 13:48 | RAD ---
CHEST 1 VIEW PORTABLE: Date: 08/15/18 HISTORY: 43-year-old male with history of fever, nausea, and body aches. COMPARISON: 01/31/12. FINDINGS: Right dual lumen venous access catheter. Heart size is within upper range of normal limits. No conflu ent pneumonia, overt edema, or pleural effusion. IMPRESSION: Right dual lumen venous access catheter. Borderline heart size. No pneumonia, edema, or other acute p rocess. POS: [facility]
[2018-08-15 14:50] LABS: Bilirubin Negative (Negative); Blood, Urine Small (Negative); Clarity Hazy (Clear); Glucose, Urine (Dipstick) 500 mg/dL (Negative); Leukocyte Negative (Negative); Nitrite Negative (Negative); Protein, Urine (Dipstick) > or equal to 300 mg/dL (Neg-Trace); Urobilinogen 0.2 mg/dL (0.2-1.0); pH, Urine 8.5 (5.0-9.0)
[2018-08-15 14:53] LABS: Bacteria/HPF Rare-Few HPF (None Seen); RBC/HPF 0-3 HPF (0-3); Squamous Epithelial None Seen HPF (0-3); WBC/HPF None Seen HPF (0-3)
[2018-08-15] MEDS ORDERED: Doxycycline Hyclate 100 MG TAB ONE (15:13)
== END 2018-08-15 15:40 | disposition home or self-care (01) ==
LOC: SCSER 12:38
DX: D72.829 Elevated white blood cell count, unspecified (principal); I12.9 Hypertensive chronic kidney disease with stage 1 through stage 4 chronic kidney disease, or unspecified chronic kidney disease; N18.4 Chronic kidney disease, stage 4 (severe); E11.22 Type 2 diabetes mellitus with diabetic chronic kidney disease; D63.1 Anemia in chronic kidney disease; Z79.4 Long term (current) use of insulin; Z79.899 Other long term (current) drug therapy
CPT/HCPCS: 71045; 80053; 81003; 81015; 83605; 85025; 87040; 87077; 87149; 87186; 87804

== ENCOUNTER 2018-12-06 03:19 | Emergency (ER) | payer MEDICARE ==
[2018-12-06] MEDS ORDERED: Benzonatate 100 MG CAP ONE (03:42)
[2018-12-06] MEDS ORDERED: Acetaminophen 500 MG TAB ONE (03:48)
--- NOTE | 2018-12-06 07:49 | RAD ---
EXAM: Chest PA and lateral: HISTORY: Cough and congestion, x2 days COMPARISON: 08/15/2018 FINDINGS: Heart: Normal Aorta: Unremarkable Pulmonary vessels: Normal Costophrenic angles: Costophrenic angles are clear. Lungs: No consolidation or masses. Pneumothorax: No pneumothorax Osseous structures: Normal IMPRESSION: No acute cardiopulmonary process.
== END 2018-12-06 04:17 | disposition home or self-care (01) ==
LOC: SCSER 03:19
DX: J20.9 Acute bronchitis, unspecified (principal); D63.1 Anemia in chronic kidney disease; I12.0 Hypertensive chronic kidney disease with stage 5 chronic kidney disease or end stage renal disease; N18.6 End stage renal disease; E11.9 Type 2 diabetes mellitus without complications; Z79.4 Long term (current) use of insulin; Z79.899 Other long term (current) drug therapy; Z79.891 Long term (current) use of opiate analgesic
CPT/HCPCS: 71046; 87804

== ENCOUNTER 2018-12-11 07:19 | Emergency (ER) | payer MEDICARE ==
[2018-12-11] MEDS ORDERED: Ondansetron PF 4 MG/2 ML Vial ONE (08:08)
--- NOTE | 2018-12-11 08:57 | RAD ---
ACUTE ABDOMINAL SERIES: INDICATIONS: History of nausea. COMPARISON: Prior CT abdomen and pelvis dated 11/26/2017. FINDINGS: The lungs are clear. The heart size is normal. No pleural effusion or pneumothorax is evident. The bowel gas pattern is unobstructed. Cholecystectomy clips are seen within the right upper quadran t. There is a peritoneal dialysis catheter within the lower pelvis, which has been intervally placed since the prior exam. No acute osseous abnormality demonstrated. IMPRESSION: 1. Interval placement of peritoneal dialysis catheter. 2. No additional acute abnormality. POS: [facility]
[2018-12-11 09:11] LABS: #Basophils 0.1 thou/uL (0.0-0.2); #Eosinphils 0.1 thou/uL (0.0-0.7); #Lymphocytes 0.9 thou/uL (1.20-3.40); #Monocytes 0.9 thou/uL (0.11-0.59); #Neutrophils 13.7 thou/uL (1.40-6.50); %Basophils 0.3 % (0.0-1.0); %Eosinophils 0.7 % (0.0-10.0); %Lymphocytes 5.5 % (21.0-51.0); %Monocytes 5.7 % (0.0-10.0); %Neutrophils 87.7 % (42.0-75.0); ALT (SGPT) 24 U/L (8-55); AST (SGOT) 32 U/L (5-34); Albumin 3.2 g/dL (3.5-5.0); Alkaline Phosphatase 79 U/L (40-150); Anion Gap 15 mmol/L (10-20); BUN (Urea Nitrogen) 61 mg/dL (8.9-20.6); Bilirubin, Total 0.5 mg/dL (0.2-1.2); Calc. Creatinine Clearance 0 mL/min (70-130); Calcium 8.1 mg/dL (7.8-10.44); Carbon Dioxide 24 mmol/L (22-29); Chloride 103 mmol/L (98-107); Estimated GFR-MDRD 4; Globulin 3.4 g/dL (2.4-3.5); Glucose 182 mg/dL (70-105); Hemoglobin 9.1 g/dL (14.0-18.0); Lipase 56 U/L (8-78); Mean Corpuscular HGB CONC 32.4 g/dL (32.0-36.0); Mean Corpuscular Hemoglobin 28.1 pg (27.0-31.0); Mean Corpuscular Volume 86.9 fL (78.0-98.0); Mean Platelet Volume 5.7 fL (7.4-10.4); Platelet Count 262 thou/uL (130-400); Potassium 3.5 mmol/L (3.5-5.1); Protein, Total 6.6 g/dL (6.0-8.3); RBC Distribution Width 14.3 % (11.5-14.5); Red Blood Cell (RBC) Count 3.24 mill/uL (4.70-6.10); Sodium 138 mmol/L (136-145); White Blood Cell (WBC) Count 15.6 thou/uL (4.8-10.8)
[2018-12-11 09:18] LABS: Base Excess-Venous -0.4 mmol/L (-2.0 to 3.0); CO2 Tension (PvCO2) 37.4 mmHg (40.0-50.0); Calcium, Ionized 1.02 mmol/L (See Comments:); Chloride 102 mmol/L (98-107); Hemoglobin - Calc 9.7 g/dL (14.0-18.0); O2 Tension (PvO2) 181.4 mmHg (35.0-45.0); Potassium 3.4 mmol/L (3.5-5.1); Sodium 137 mmol/L (138-145); T. Carbon Dioxide 25.2 mmol/L (22.0-28.0); pH (Venous) 7.416 (7.320-7.430); vO2 Saturation-calc 99.6 % (60.0-85.0)
== END 2018-12-11 10:10 | disposition home or self-care (01) ==
LOC: SCSER 07:19
DX: R11.2 Nausea with vomiting, unspecified (principal); E11.22 Type 2 diabetes mellitus with diabetic chronic kidney disease; I12.0 Hypertensive chronic kidney disease with stage 5 chronic kidney disease or end stage renal disease; N18.6 End stage renal disease; Z79.899 Other long term (current) drug therapy; Z79.4 Long term (current) use of insulin
CPT/HCPCS: 36416; 74022; 80053; 82010; 82330; 82803; 83605; 83690; 85025; 96361; 96374; J2405

== ENCOUNTER 2019-02-16 21:30 | Emergency (ER) | payer MEDICAID, MEDICARE ==
[2019-02-16] MEDS ORDERED: Ondansetron ODT 4 MG TAB ONE (21:53)
[2019-02-16 22:21] LABS: #Basophils 0.1 thou/uL (0.0-0.2); #Eosinphils 0.1 thou/uL (0.0-0.7); #Lymphocytes 1.2 thou/uL (1.20-3.40); #Monocytes 0.3 thou/uL (0.11-0.59); #Neutrophils 6.9 thou/uL (1.40-6.50); %Basophils 0.8 % (0.0-1.0); %Eosinophils 1.6 % (0.0-10.0); %Lymphocytes 13.4 % (21.0-51.0); %Monocytes 3.9 % (0.0-10.0); %Neutrophils 80.3 % (42.0-75.0); Mean Corpuscular HGB CONC 33.4 g/dL (32.0-36.0); Mean Corpuscular Hemoglobin 29.8 pg (27.0-31.0); Mean Corpuscular Volume 89.2 fL (78.0-98.0); Platelet Count 228 thou/uL (130-400); RBC Distribution Width 14.4 % (11.5-14.5); Red Blood Cell (RBC) Count 3.71 mill/uL (4.70-6.10); White Blood Cell (WBC) Count 8.6 thou/uL (4.8-10.8)
[2019-02-16 22:41] LABS: ALT (SGPT) 31 U/L (8-55); AST (SGOT) 28 U/L (5-34); Albumin 3.3 g/dL (3.5-5.0); Alkaline Phosphatase 74 U/L (40-150); Anion Gap 16 mmol/L (10-20); BUN (Urea Nitrogen) 62 mg/dL (8.9-20.6); Bilirubin, Total 0.6 mg/dL (0.2-1.2); Calc. Creatinine Clearance 0 mL/min (70-130); Calcium 8.6 mg/dL (7.8-10.44); Carbon Dioxide 27 mmol/L (22-29); Chloride 100 mmol/L (98-107); Estimated GFR-MDRD 5; Globulin 3.6 g/dL (2.4-3.5); Glucose 196 mg/dL (70-105); Lipase 84 U/L (8-78); Potassium 3.8 mmol/L (3.5-5.1); Protein, Total 6.9 g/dL (6.0-8.3); Sodium 139 mmol/L (136-145)
== END 2019-02-16 23:03 | disposition home or self-care (01) ==
LOC: SCSER 21:30
DX: K29.70 Gastritis, unspecified, without bleeding (principal); D64.89 Other specified anemias; I12.0 Hypertensive chronic kidney disease with stage 5 chronic kidney disease or end stage renal disease; N18.6 End stage renal disease; E11.65 Type 2 diabetes mellitus with hyperglycemia; Z99.2 Dependence on renal dialysis; Z79.891 Long term (current) use of opiate analgesic; Z79.4 Long term (current) use of insulin; Z79.899 Other long term (current) drug therapy
CPT/HCPCS: 36415; 80053; 83605; 83690; 85025; 99284; Q0162

== ENCOUNTER 2019-02-17 01:35 | Observation (INO) | payer MEDICARE ==
[2019-02-17] MEDS ORDERED: Ondansetron PF 4 MG/2 ML Vial ONE (03:52)
[2019-02-17 04:06] LABS: #Lymphocytes 1.2 thou/uL (1.20-3.40); #Monocytes 0.3 thou/uL (0.11-0.59); #Neutrophils 10.3 thou/uL (1.40-6.50); %Basophils 0.3 % (0.0-1.0); %Eosinophils 0.2 % (0.0-10.0); %Monocytes 2.5 % (0.0-10.0); Mean Corpuscular HGB CONC 33.3 g/dL (32.0-36.0); Mean Corpuscular Hemoglobin 30.5 pg (27.0-31.0); Mean Corpuscular Volume 91.6 fL (78.0-98.0); Mean Platelet Volume 7.7 fL (7.4-10.4); Platelet Count 263 thou/uL (130-400); RBC Distribution Width 14.3 % (11.5-14.5); White Blood Cell (WBC) Count 11.9 thou/uL (4.8-10.8)
[2019-02-17 04:16] LABS: ALT (SGPT) 27 U/L (8-55); AST (SGOT) 27 U/L (5-34); Albumin 3.3 g/dL (3.5-5.0); Alkaline Phosphatase 79 U/L (40-150); Anion Gap 17 mmol/L (10-20); BUN (Urea Nitrogen) 68 mg/dL (8.9-20.6); Bilirubin, Total 0.7 mg/dL (0.2-1.2); Calc. Creatinine Clearance 0 mL/min (70-130); Calcium 8.7 mg/dL (7.8-10.44); Carbon Dioxide 24 mmol/L (22-29); Chloride 99 mmol/L (98-107); Estimated GFR-MDRD 5; Globulin 3.7 g/dL (2.4-3.5); Glucose 204 mg/dL (70-105); Lipase 56 U/L (8-78); Potassium 3.7 mmol/L (3.5-5.1); Sodium 136 mmol/L (136-145)
[2019-02-17 04:27] LABS: CK (CPK) 926 U/L (30-200)
[2019-02-17] MEDS ORDERED: Metoclopramide HCl 10 MG/2 ML VIAL ONE (05:25)
--- NOTE | 2019-02-17 05:53 | PDOC.FPRHP ---
- History of Present Illness Chief Complaint: vomiting History of Present Illness: Pt is a 43 y/o M with hx/o ESRD and DM presenting for vomiting. Started ~24hrs ago and has not improved. Did go to outside hospital ED and was discharged, but vomiting did not resolve and he decided to present to ED again. Pt provides limited history as is sleepy and most HPI from nursing staff who reports vomiting has been controlled and pt status improved in ED. Pt does deny abdominal pain and admits to having nonbloody normal BM today. appetite has been normal. - Allergies/Adverse Reactions Allergies Allergy/AdvReac Type Severity Reaction Status Date / Time No Known Drug Allergies Allergy Verified 11/26/17 21:02 - Home Medications Medication Instructions Recorded Confirmed Type Lisinopril 20 mg PO DAILY 09/12/13 02/17/19 History HumaLOG [HumaLOG Vial] 0 unit SC AC PRN 11/26/17 02/17/19 History Insulin Glargine,Hum.Rec.Anlog 40 unit SQ QPM 11/26/17 02/17/19 History [Lantus Solostar] Calcium Acetate 2 cap PO TID 02/17/19 02/17/19 History Carvedilol [Coreg] 25 mg PO BID 02/17/19 02/17/19 History NIFEdipine [Procardia XL] 60 mg PO DAILY 02/17/19 02/17/19 History hydrALAZINE HCl [Hydralazine HCl] 100 mg PO BID 02/17/19 02/17/19 History - History PMHx:T1DM, ESRD, HTN PSHx: digit amputation on foot, b/l cataract surgery FHx:unknown Social: Denies tobacco use, ETOH, or illicit drug use - Review of Systems Respiratory: denies: cough, shortness of breath Cardiovascular: denies: chest pain, palpitation Gastrointestinal: reports: nausea, vomiting. denies: diarrhea, constipation, abdominal pain, GI bleeding Musculoskeletal: denies: pain, tenderness (additional ROS not answerd by pt) - Vital signs BP: 170/90 HR: 87 RR: 20 Tmax: 99.2 on RA Pox: 97% - Physical Exam Constitutional: NAD, awake, alert and oriented (groggy/slepy but arousable) HEENT: PERRLA, EOMI, conjunctiva clear Neck: supple, FROM Heart: RRR, normal S1/S2, no murmurs/rubs/gallops, pulses present, no edema Lungs: CTAB, no respiratory distress, good air movement, no rales/rhonchi, no wheezing Abdomen: soft, non-tender, bowel sounds present, no masses/distention Musculoskeletal: normal structure, normal tone Neurological: no focal deficit Skin: no rash/lesions, good turgor FMR H&P: Results - Labs Result Diagrams: 02/17/19 03:43 02/17/19 03:43 Lab results: WBC 11.9 thou/uL (4.8-10.8) H 02/17/19 03:43 Hgb 11.0 g/dL (14.0-18.0) L 02/17/19 03:43 Hct 33.0 % (42.0-52.0) L 02/17/19 03:43 MCV 91.6 fL (78.0-98.0) 02/17/19 03:43 Plt Count 263 thou/uL (130-400) 02/17/19 03:43 Neutrophils % 87.0 % (42.0-75.0) H 02/17/19 03:43 Sodium 136 mmol/L (136-145) 02/17/19 03:43 Potassium 3.7 mmol/L (3.5-5.1) 02/17/19 03:43 Chloride 99 mmol/L (98-107) 02/17/19 03:43 Carbon Dioxide 24 mmol/L (22-29) 02/17/19 03:43 BUN 68 mg/dL (8.9-20.6) H 02/17/19 03:43 Creatinine 14.01 mg/dL (0.7-1.3) H 02/17/19 03:43 Glucose 204 mg/dL (70-105) H 02/17/19 03:43 Calcium 8.7 mg/dL (7.8-10.44) 02/17/19 03:43 Total Bilirubin 0.7 mg/dL (0.2-1.2) 02/17/19 03:43 AST 27 U/L (5-34) 02/17/19 03:43 ALT 27 U/L (8-55) 02/17/19 03:43 Alkaline Phosphatase 79 U/L (40-150) 02/17/19 03:43 Creatine Kinase 926 U/L (30-200) H 02/17/19 03:43 B-Natriuretic Peptide 47.2 pg/mL (0-100) 02/17/19 03:43 Serum Total Protein 7.0 g/dL (6.0-8.3) 02/17/19 03:43 Albumin 3.3 g/dL (3.5-5.0) L 02/17/19 03:43 Lipase 56 U/L (8-78) 02/17/19 03:43 FMR H&P: A/P - Problem List (1) CKD stage 4 due to type 2 diabetes mellitus Current Visit: No Status: Acute Code(s): E11.22 - TYPE 2 DIABETES MELLITUS W DIABETIC CHRONIC KIDNEY DISEASE; N18.4 - CHRONIC KIDNEY DISEASE, STAGE 4 ( SEVERE) (2) Gastroparesis Current Visit: No Status: Acute Code(s): K31.84 - GASTROPARESIS (3) HTN (hypertension) Current Visit: No Status: Acute Code(s): I10 - ESSENTIAL (PRIMARY) HYPERTENSION (4) Hypertensive urgency Current Visit: No Status: Acute Code(s): I16.0 - HYPERTENSIVE URGENCY (5) Type I diabetes mellitus Current Visit: No Status: Acute - Plan 42 yr old AAM admitted for intractable nausea and vomiting and elevated BPs. 1.Hypertensive urgency- IV hydralazie PRN and will begin PO medications when able to tolerate 2.Intractible Vomiting- Most likely 2/2 to gastroparesis or viral gastroenteritis, Will fluid resuscitate and order IVreglan and continue IV antiemetics. Has had cholecystectomy in the past and benign abdominal exam/CT abdomen today. 3.T1DM- Will order SSI and plae on home insulin regimen(Unknown Lantus dose) once med recociliation. 4.ESRD- Continue PD, will notify Nephro 5.Mild rhabdo- CPK 900 will give gentle IV fluids and trend. Unsure if pt makes urine. DVT Ppx: Heparin Code: Full Dispo: Admit to med obs anticipate discharge in 1-2d. Addendum - Attending - Attending Attestation Date/Time: 02/17/19 1037 I personally evaluated the patient and discussed the management with Dr. Coates I agree with the History, Examination, Assessment and Plan documented above with any addition or exceptions noted below. 43 yo DM1 with ESRD on peritoneal dialysis with N/V/now diarrhea do not suspect SBP at this time rather questionable component diabetic gastroparesis, AGE and will rec UDS notify [employer] Dr. Ellsworth et. al. of patients admission. Abdomen soft non tender hyperactive BS PD site without sign of infection. Note elevated CK will need to trend.
[2019-02-17] MEDS ORDERED: Nitroglycerin 2% Ointment 1 INCH/1 GM Packet ONE (06:38)
[2019-02-17] MEDS ORDERED: Promethazine HCl 25 MG/ML VIAL IM/IV PRN (06:44)
[2019-02-17] MEDS ORDERED: Dextrose 5% in Water 1,000 ML IV PRN (07:45)
[2019-02-17] MEDS ORDERED: Acetaminophen 650 MG Suppository PR PRN (07:45)
[2019-02-17] MEDS ORDERED: Acetaminophen 325 MG TAB PO PRN (07:45)
[2019-02-17] MEDS ORDERED: hydrALAZINE 20 MG/ML VIAL SLOW IVP PRN (07:45)
[2019-02-17] MEDS ORDERED: Ondansetron PF 4 MG/2 ML Vial IVP PRN (07:45)
[2019-02-17] MEDS ORDERED: Dextrose 50% Abboject 50 ML SYRINGE SLOW IVP PRN (07:45)
[2019-02-17] MEDS ORDERED: HumaLOG 300 UNITS/3 ML VIAL SC PRN (07:45)
[2019-02-17 08:11] VITALS: BMI 25.9
--- NOTE | 2019-02-17 08:37 | CT ---
PRELIMINARY REPORT/[facility]/AFTER HOURS PROCEDURE EXAM: CT Abdomen and Pelvis Without Contrast EXAM DATE/TIME: 02/17/2019 4:24 AM CLINICAL HISTORY: 43 years old, male; Patient HX: 43yom w/hx of peritoneal dialysis, dm, HTN, presents with n/v. PT became nauseous around 1600 today. Has had approx. 20 episodes of vomiting. Mild diarrhea x 2. Denies any fever or abd pain. Was seen [facility] ED where he was discharged after normal labs. After discharge PT was still symptomatic. TECHNIQUE: Imaging protocol: Axial computed tomography images of the abdomen and pelvis without contrast. COMPARISON: No relevant prior studies available. FINDINGS: Evaluation of the upper abdomen is limited due to streak artifacts. Tubes, catheters and devices: A peritoneal dialysis catheter is noted in the pelvis coiling in the le ft lower quadrant. Liver: Normal. No mass. Gallbladder and bile ducts: Cholecystectomy clips are seen. Pancreas: Normal. No ductal dilation. Spleen: Normal. No splenomegaly. Adrenals: Normal. No mass. Kidneys and ureters: Normal. No hydronephrosis. Stomach and bowel: Mild rectal wall thickening likely represents proctitis. Mild wall thickening involving the colon is likely due to underdistention. Colitis is not excluded. Mild jejunal wall thic kening likely represents enteritis. Appendix: The appendix is not clearly visualized. Intraperitoneal space: Mild free fluid is seen in the pelvis. No evidence of free air in the abdomen. Vasculature: Mild atherosclerotic calcifications affect the aorta and its branches. Lymph nodes: Several small retroperitoneal lymph nodes are noted the largest measuring 9 mm. Bladder: Mild thickening of the urinary bladder wall is likely due to underdistention. Cystitis is no t excluded. Reproductive: Unremarkable as visualized. Bones/joints: No acute fracture. No dislocation. Soft tissues: Unremarkable. IMPRESSION: 1. Mild rectal wall thickening likely represents proctitis. Mild wall thickening involving the colon is likely due to underdistention. Colitis is not excluded. Mild jejunal wall thickening likely represents enter itis. 2. Peritoneal dialysis catheter noted in the pelvis coiling in the left lower quadrant. No evidence o f cyst around the tip of the peritoneal dialysis catheter. 3. Mild free fluid in the pelvis is likely reactive. 4. Mild thickening of the urinary bladder wall is likely due to underdistention. Cystitis is not excl uded. Thank you for allowing us to participate in the care of your patient. Dictated and Authenticated by: Paola Flores MD 02/17/2019 7:34 AM Central Time ([place] & [place]) FINAL REPORT CT ABDOMEN AND PELVIS WITHOUT CONTRAST: PROVIDED CLINICAL HISTORY: Nausea and vomiting. COMPARISON: 11/26/2017 FINDINGS: The visualized lung bases are free of significant opacity. The solid abdominal organs are suboptimally evaluated in the absence of IV contrast material but demo nstrate an unremarkable unenhanced CT appearance. Peritoneal dialysis catheter is noted, with associated minimal free pelvic fluid. No bowel dilatatio n, inflammatory fat stranding, or free air apparent. Areas of apparent bowel thickening may be on the basis of nondistention. Vascular calcifications are noted. The osseous structures demonstrate no concerning lytic or blastic lesions. Changes of prior cholecys tectomy are seen. IMPRESSION: Areas of apparent bowel thickening are likely on the basis of nondistention. No evidence for bowel o bstruction. Transcribed Date/Time: 02/17/2019 8:42 AM
[2019-02-17] MEDS ORDERED: Enoxaparin Sodium 30 MG/0.3 ML SYRINGE SC SCH (09:00)
--- NOTE | 2019-02-17 09:42 | RAD ---
PORTABLE CHEST: 02/17/2019 PROVIDED CLINICAL HISTORY: Vomiting. COMPARISON: 12/06/2018 FINDINGS: The cardiac and mediastinal silhouette is within normal limits. The lungs appear clear. No pleural fluid or pneumothorax apparent. IMPRESSION: No evidence for an acute cardiopulmonary process. POS: OFF
[2019-02-17] MEDS: Sodium Chloride 0.9% 1,000 ML IV SCH ×4 (09:57→23:16)
[2019-02-17] MEDS: Heparin 5,000 UNITS/ML VIAL SC SCH ×3 (09:58→21:42)
[2019-02-17] MEDS ORDERED: Metoclopramide HCl 10 MG/2 ML VIAL IVP PRN (11:02)
[2019-02-17] MEDS ORDERED: Lisinopril 20 MG TAB PO SCH (12:30)
[2019-02-17] MEDS ORDERED: NIFEdipine XL 60 MG TAB PO SCH (12:30)
[2019-02-17] MEDS ORDERED: Carvedilol 25 MG TAB PO SCH (12:30)
[2019-02-17] MEDS ORDERED: hydrALAZINE 25 MG TAB PO SCH (12:30)
[2019-02-17] MEDS ORDERED: Metoclopramide HCl 10 MG/2 ML VIAL IVP SCH (14:00)
[2019-02-17] MEDS: Calcium Acetate 667 MG CAP PO SCH ×2 (15:59→21:40)
--- NOTE | 2019-02-17 16:05 | CON ---
DATE OF CONSULTATION: REASON FOR CONSULTATION: Stage 6 chronic kidney disease, for maintenance peritoneal dialysis. HISTORY OF PRESENT ILLNESS: This is a very pleasant 43-year-old gentleman, who presented to the hospital with vomiting about 1 day ago. The patient does peritoneal dialysis at night. Denies any headache, numbness, tingling, or weakness. ALLERGIES: REVIEWED. HOME MEDICATIONS: List reviewed. PAST MEDICAL HISTORY: Significant for hypertension, diabetes mellitus, amputation, cataract surgery, peritoneal dialysis catheter. FAMILY HISTORY: Negative for ESRD. SOCIOECONOMIC HISTORY: No alcohol or drug use. REVIEW OF SYSTEMS: A 15-point review of systems was performed and negative except for positives noted above. GENERAL: HEAD: NECK: No swelling or lumps. NOSE: No epistaxis or discharge. EYES: No diplopia or pain. 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 NEUROPSYCHIATIC SYSTEMS: No suicidal ideation. No ideation. SKIN: Denies any rash or ulcer. CONSTITUTIONAL: No fever or chills. PHYSICAL EXAMINATION: GENERAL: The patient is awake and alert. VITAL SIGNS: Pulse 87, breathing 16, blood pressure 170/90. GENERAL APPEARANCE AND MENTAL STATUS: Fair. HEAD/NECK: Normocephalic. Atraumatic. EYES: EOMI. No deformity. EARS: Clear. No ulcers. NOSE: Intact. No lesions. MOUTH: Clear. No discharge. THROAT: Clear. No exudate. LUNGS: Clear. No crackles. CARDIAC: S1, S2. No rub. ABDOMEN: Benign. Bowel sounds positive. GENITALIA/RECTUM: Crump absent. BACK/EXTREMITIES: Edema 0+. NEUROLOGICAL: Alert and motor intact. SKIN: LYMPHATICS: LABORATORY DATA: Reviewed. ASSESSMENT AND PLAN: 1. Stage 6 chronic kidney disease, continue peritoneal dialysis. 2. Hypertensive, stable. 3. Anemia, stable. 4. Medication based on GFR appropriate. Job ID: [id number]
[2019-02-17 19:08] LABS: Amphetamine Not Detected (NotDetected); Barbiturates Screen Not Detected (NotDetected); Benzodiazepine Screen Not Detected (NotDetected); Cocaine Metabolite Screen Not Detected (NotDetected); Medtox Control Line Valid? VALID (VALID); Medtox Reader # READER 1; Methadone Not Detected (NotDetected); Methamphetamine Not Detected (NotDetected); Opiate Screen Not Detected (NotDetected); Oxycodone Screen Not Detected (NotDetected); Phencyclidine (PCP) Not Detected (NotDetected); THC/Cannabinoid Screen Not Detected (NotDetected); Tricyclic Screen Not Detected (NotDetected)
[2019-02-17] MEDS ORDERED: Non-Formulary Item 1 EACH (Insulin Glargine,Hum.Rec.Anlog [Lantus Solostar] 40 UNIT) SQ SCH (21:00)
[2019-02-17] MEDS ORDERED: Insulin Glargine 25 UNITS in Pre-Filled Syringe 1 EACH SC SCH (21:00)
[2019-02-17] MEDS ORDERED: Insulin Glargine 40 UNITS in Pre-Filled Syringe 1 EACH SC SCH (21:00)
[2019-02-17] MEDS: hydrALAZINE 25 MG TAB PO SCH (21:41)
[2019-02-17] MEDS: Carvedilol 25 MG TAB PO SCH (21:41)
[2019-02-18 06:00] LABS: #Basophils 0.1 thou/uL (0.0-0.2); #Eosinphils 0.2 thou/uL (0.0-0.7); #Lymphocytes 2.1 thou/uL (1.20-3.40); #Monocytes 0.5 thou/uL (0.11-0.59); #Neutrophils 5.9 thou/uL (1.40-6.50); %Basophils 0.9 % (0.0-1.0); %Eosinophils 2.1 % (0.0-10.0); %Lymphocytes 23.6 % (21.0-51.0); %Monocytes 5.7 % (0.0-10.0); %Neutrophils 67.7 % (42.0-75.0); Hemoglobin 9.8 g/dL (14.0-18.0); Mean Corpuscular HGB CONC 33.4 g/dL (32.0-36.0); Mean Platelet Volume 7.7 fL (7.4-10.4); Platelet Count 237 thou/uL (130-400); RBC Distribution Width 14.2 % (11.5-14.5); Red Blood Cell (RBC) Count 3.15 mill/uL (4.70-6.10); White Blood Cell (WBC) Count 8.7 thou/uL (4.8-10.8)
[2019-02-18 06:23] LABS: ALT (SGPT) 20 U/L (8-55); AST (SGOT) 24 U/L (5-34); Albumin 2.9 g/dL (3.5-5.0); Alkaline Phosphatase 70 U/L (40-150); Anion Gap 16 mmol/L (10-20); BUN (Urea Nitrogen) 71 mg/dL (8.9-20.6); Bilirubin, Total 0.5 mg/dL (0.2-1.2); CK (CPK) 828 U/L (30-200); Calc. Creatinine Clearance 9 mL/min (70-130); Calcium 8.1 mg/dL (7.8-10.44); Carbon Dioxide 24 mmol/L (22-29); Chloride 101 mmol/L (98-107); Estimated GFR-MDRD 5; Globulin 2.9 g/dL (2.4-3.5); Glucose 100 mg/dL (70-105); Magnesium 2.2 mg/dL (1.6-2.6); Phosphorus 5.3 mg/dL (2.3-4.7); Potassium 3.2 mmol/L (3.5-5.1); Protein, Total 5.8 g/dL (6.0-8.3); Sodium 138 mmol/L (136-145)
--- NOTE | 2019-02-18 06:59 | PDOC.FM ---
Addendum entered and electronically signed by Sheila Goldstein MD 02/18/19 11:15 : Of note CT scan with evidence of possible enteritis and proctitis although limited study due to lack of contrast. Could not rule out colitis. Discussed findings with patient. Denies blood in stool. Denies family hx of crohns, ulcerative colitis, or colon cancer. Denies hx of sex with men, hx of gonorrhea/chlamydia. In a monogamous relationship, no concern for GC/C. Findings c/w suspected gastroenteritis. Afebrile, no leukocytosis this morning( mild elevation at admission). Diarrhea x 2, now resolved. declined rectal exam. Advised patient to look out for blood in stool and follow up with PCP if symptoms occur. HGB stable at his baseline. patient verbalized understanding. Original Note: - Subjective Subjective: Patient feeling much better this morning. No nausea or vomiting. Did not even need to use reglan yesterday. Had a normal BM this AM. Wants to try reg meal. No headaches, chest pain, SOB. - Objective MAR Reviewed: Yes Vital Signs & Weight: Vital Signs (12 hours) Temp Pulse Resp BP BP Pulse Ox 02/18/19 04:31 98.4 F 88 20 132/69 94 L 02/17/19 23:12 99 F 87 20 118/58 L 95 02/17/19 21:41 91 140/76 02/17/19 19:32 98.7 F 92 20 158/77 H 96 Weight Weight 95.028 kg I&O: 02/16/19 02/17/19 02/18/19 06:59 06:59 06:59 Intake Total 2404 Output Total 550 Balance 1854 Result Diagrams: 02/18/19 04:53 02/18/19 04:53 Phys Exam - Physical Examination Constitutional: NAD HEENT: moist MMs Respiratory: no wheezing, no rales, no rhonchi, clear to auscultation bilateral Cardiovascular: RRR, no significant murmur Gastrointestinal: soft, non-tender, no distention, positive bowel sounds Musculoskeletal: no edema Neurological: non-focal, normal sensation, moves all 4 limbs Psychiatric: A&O x 3 Skin: cap refill <2 seconds Dx/Plan (1) Gastroenteritis Code(s): K52.9 - NONINFECTIVE GASTROENTERITIS AND COLITIS, UNSPECIFIED Status : Acute Plan: suspected etiology of N/V/D. UDS neg. (2) Chronic kidney disease with peritoneal dialysis as preferred modality, stage 5 Code(s): N18.5 - CHRONIC KIDNEY DISEASE, STAGE 5 Status: Chronic Plan: cont PD (3) HTN (hypertension) Code(s): I10 - ESSENTIAL (PRIMARY) HYPERTENSION Status: Chronic Plan: cont home meds. (4) Type I diabetes mellitus Status: Chronic Plan: home insulin regimen. (5) Elevated CK Status: Acute Plan: Unsure his baseline. May be 2/2 viral illness/concurrent gastroenteritis. Would recommend follow up with PCP for repeat CK outpatient. Addendum - Attending - Attending Attestation Date/Time: 02/18/19 [id number] I personally evaluated the patient and discussed the management with Dr. Goldstein I agree with the History, Examination, Assessment and Plan documented above with any addition or exceptions noted below. Tolerating diet GI symptoms resolved ok dismiss home with outpatient follow up.
[2019-02-18] MEDS ORDERED: NIFEdipine XL 60 MG TAB PO SCH (09:00)
[2019-02-18] MEDS ORDERED: Lisinopril 20 MG TAB PO SCH (09:00)
[2019-02-18] MEDS: Calcium Acetate 667 MG CAP PO SCH (09:38)
[2019-02-18] MEDS: hydrALAZINE 25 MG TAB PO SCH (09:39)
[2019-02-18] MEDS: Carvedilol 25 MG TAB PO SCH (09:41)
[2019-02-18] MEDS: Heparin 5,000 UNITS/ML VIAL SC SCH (09:41)
[2019-02-18] MEDS ORDERED: Potassium Chloride 20 MEQ TAB PO SCH (11:30)
[2019-02-18 12:14] VITALS: BP 167/77; TEMP 98.3
--- NOTE | 2019-02-18 12:14 | PRG ---
DATE OF SERVICE: 02/18/2019 SUBJECTIVE: This is a 43-year-old gentleman, being seen for end-stage renal disease. The patient denied any nausea, vomiting, or chest pain. OBJECTIVE: CONSTITUTIONAL: On examination, the patient is awake and alert. VITAL SIGNS: Afebrile, pulse 82, breathing 16, and blood pressure 140/76. GENERAL APPEARANCE AND MENTAL STATUS: Fair. HEAD/NECK: Normocephalic. Atraumatic. EYES: EOMI. No deformity. EARS: Clear. No ulcers. NOSE: Intact. No lesions. MOUTH: Clear. No discharge. THROAT: Clear. No exudate. LUNGS: Clear. No crackles. CARDIAC: S1, S2. No rub. ABDOMEN: Benign. Bowel sounds positive. GENITALIA/RECTUM: Crump absent. BACK/EXTREMITIES: Edema 0+. NEUROLOGICAL: Alert and motor intact. LABORATORY DATA: Reviewed. ASSESSMENT AND PLAN: 1. Stage 6 chronic kidney disease. Continue peritoneal dialysis. 2. Hypertension, stable. 3. Anemia, stable. 4. Medications based on glomerular filtration rate are appropriate. 5. Hypokalemia, recommend 20 mEq of potassium x1 dose. Job ID: [id number]
--- NOTE | 2019-02-18 14:49 | DIS ---
DATE OF ADMISSION: 02/17/2019 DATE OF DISCHARGE: 02/18/2019 ADMITTING ATTENDING: Dr. Quique Cardoso. DISCHARGE DIAGNOSES: 1. Intractable nausea and vomiting secondary to gastroenteritis. 2. Hypertension. 3. End-stage renal disease, on peritoneal dialysis. 4. Type 1 diabetes. 5. Elevated creatine kinase. DISCHARGE MEDICATIONS: 1. Lisinopril 20 mg p.o. daily. 2. Lantus SoloSTAR Pen 25 units subcutaneous q.p.m. 3. Humalog sliding scale a.c. p.r.n. 4. Nifedipine 60 mg p.o. daily. 5. Calcium acetate 667 mg capsule, two capsules p.o. t.i.d. 6. Hydralazine 100 mg p.o. b.i.d. 7. Carvedilol 25 mg p.o. b.i.d. IMAGING AND PROCEDURES: On February 17, 2019, CT scan of the abdomen and pelvis without contrast was performed, which showed mild rectal wall thickening likely represents proctitis, mild wall thickening involving the colon is likely due to underdistention, colitis is not excluded. Mild jejunum wall thickening likely reports enteritis. Peritoneal dialysis catheter noted in the pelvis clearly in the left lower quadrant, no evidence of stitch around the tip of the peritoneal dialysis catheter. Mild free fluid in the pelvis is likely reacting. Mild thickening in the urinary bladder is likely due to underdistention, cystitis not excluded. HISTORY OF PRESENT ILLNESS/HOSPITAL COURSE: This is a 43-year-old male with a past medical history of type 1 diabetes, who presented with sudden onset of nausea and vomiting and then had 2 episodes of diarrhea at the beginning of the hospital stay. The patient was treated with some IV Reglan in the ER, which did significantly improved his symptoms and he did not require an additional medication during his stay. The patient's diet was advanced as tolerated and did well with this. Dr. Abel was consulted due to his need for peritoneal dialysis during hospitalization and was somewhat stable. The patient's diabetes was well controlled during his hospital stay. The patient was initially hypertensive upon his admission, however, his home medications were restarted and blood pressure was improved after medication given. The patient was asymptomatic from this stand point. The patient was found to have a slightly elevated creatine kinase, not in rhabdomyolysis range. This did downtrend on his second hospital stay from 900 to 828. Suspect this to be secondary to the suspected viral gastroenteritis. We would recommend that he follow up outpatient for consideration of repeat CK labs. Advised patient to discuss any rectal bleeding issues with his PCP should they arise given his diffuse possible findings on CT. Asymptomatic at this time. DISCHARGE: Stable. DISCHARGE INSTRUCTIONS: Location: Home. ACTIVITY: As tolerated. DIET: Renal. FOLLOWUP: Follow up with his PCP in 5 to 7 days. Consider repeat CK at that time. Job ID: [id number] MTDD
== END 2019-02-18 12:24 | disposition home or self-care (01) ==
LOC: ERS 01:35 → 2SW 05:45
PROVIDERS: ADMIT Family Medicine; ATTEND Family Medicine
DX: K52.9 Noninfective gastroenteritis and colitis, unspecified (principal); I16.0 Hypertensive urgency; I12.0 Hypertensive chronic kidney disease with stage 5 chronic kidney disease or end stage renal disease; E10.22 Type 1 diabetes mellitus with diabetic chronic kidney disease; N18.6 End stage renal disease; D63.1 Anemia in chronic kidney disease; R74.8 Abnormal levels of other serum enzymes; E10.43 Type 1 diabetes mellitus with diabetic autonomic (poly)neuropathy; K31.84 Gastroparesis; E87.6 Hypokalemia; M62.82 Rhabdomyolysis; Z99.2 Dependence on renal dialysis; Z79.899 Other long term (current) drug therapy
CPT/HCPCS: 71045; 74176; 80053 ×2; 80306; 82010; 82550 ×2; 82962 ×2; 83690; 83735; 83880; 84100; 84484; 85025 ×2; 93005; 96361 ×2; 96365; 96375; 99285; G0378 ×2; 36415; 36416; J1644; J1815; J2405; J2765

== ENCOUNTER 2020-07-31 21:57 | Inpatient (IN) | payer MEDICARE, SELFPAY ==
[~2020-07-31 21:57] MED LIST: Iopamidol-370 76% 500 ML 1 ML ONE
[2020-07-31] MEDS ORDERED: Ondansetron PF 4 MG/2 ML Vial ONE ×2 (22:12→22:18)
[2020-07-31] MEDS ORDERED: Promethazine HCl 25 MG/ML VIAL ONE (22:12)
[2020-07-31 23:00] LABS: ALT (SGPT) 14 U/L (8-55); AST (SGOT) 25 U/L (5-34); Alkaline Phosphatase 64 U/L (40-110); Anion Gap 21 mmol/L (10-20); BUN (Urea Nitrogen) 82 mg/dL (8.9-20.6); Bilirubin, Total 0.6 mg/dL (0.2-1.2); CK (CPK) 1250 U/L (30-200); Calc. Creatinine Clearance 0 mL/min (70-130); Calcium 8.6 mg/dL (7.8-10.44); Carbon Dioxide 19 mmol/L (22-29); Chloride 100 mmol/L (98-107); Globulin 3.7 g/dL (2.4-3.5); Glucose 122 mg/dL (70-105); Lipase 33 U/L (8-78); Magnesium 2.7 mg/dL (1.6-2.6); Potassium 4.9 mmol/L (3.5-5.1); Protein, Total 6.7 g/dL (6.0-8.3); Sodium 135 mmol/L (136-145)
[2020-07-31 23:02] LABS: Hemoglobin 12.4 g/dL (14.0-18.0); INR-International Normal Ratio 1.1; Mean Corpuscular HGB CONC 31.7 g/dL (32.0-36.0); Mean Corpuscular Hemoglobin 29.6 pg (27.0-31.0); Mean Corpuscular Volume 93.4 fL (78.0-98.0); Mean Platelet Volume 7.6 fL (7.4-10.4); Platelet Count 262 thou/uL (130-400); RBC Distribution Width 14.1 % (11.5-14.5); Red Blood Cell (RBC) Count 4.18 mill/uL (4.70-6.10); White Blood Cell (WBC) Count 11.3 thou/uL (4.8-10.8)
[2020-07-31 23:03] LABS: PTT 31.4 sec (22.9-36.1)
[2020-07-31 23:17] LABS: Band 1 % (5-11); Eosinophils 2 % (0-10); Lymphocytes 6 % (21-51); MDiff Complete? YES; Monocytes 4 % (0-10); Neutrophil 87 % (42-75)
[2020-07-31 23:49] LABS: CKMB 10.8 ng/mL (0-6.6)
--- NOTE | 2020-08-01 01:31 | PDOC.FPRHP ---
- History of Present Illness Chief Complaint: "went to sleep after orgasm" History of Present Illness: Pt is a 45 yo M with PMH of T1DM, ESRD on peritoneal dialysis, HTN who presents after he "went to sleep after orgasm". As per ED report, he did not tell them this, and instead the story the ED got was that the eliana pointed out blood on his dressing for his PD port and when he looked down at it, he started to stare off into space and had grinding and clinching of his teeth. She seemed to be describing a seizure as per ED checkout. Patient does not have a history of seizure disorder, but did have one episode 10-15 years ago where he had a seizure 2/2 drug to drug interaction while hospitalized. As per EMS report, patient seemed to be post ictal and had right side weakness which resolved for ED physician upon initial encounter. Eliana was not present for my questioning, and patient insisted that he just went to sleep after he had an orgasm and does not know why everyone is freaking out. When pressing patient for more information about what happened during this incident where he fell asleep, he could not expand. ROS is limited due to patient not being cooperative with exam. He endorses compliance with daily peritoneal dialysis. ED Course: phenergen, 1L fluids, Zofran - Allergies/Adverse Reactions Allergies Allergy/AdvReac Type Severity Reaction Status Date / Time No Known Drug Allergies Allergy Verified 11/18/19 23:27 - Home Medications Medication Instructions Recorded Confirmed Type Lisinopril 20 mg PO DAILY 09/12/13 02/17/19 History HumaLOG [HumaLOG Vial] 0 unit SC AC PRN 11/26/17 02/17/19 History Insulin Glargine,Hum.Rec.Anlog 25 unit SQ QPM 11/26/17 02/18/19 History [Lantus Solostar] Calcium Acetate 2 cap PO TID 02/17/19 02/17/19 History Carvedilol [Coreg] 25 mg PO BID 02/17/19 08/01/20 History NIFEdipine [Procardia XL] 60 mg PO DAILY 02/17/19 02/17/19 History hydrALAZINE HCl [Hydralazine HCl] 100 mg PO BID 02/17/19 02/17/19 History Atorvastatin Calcium [Lipitor] 10 mg PO DAILY 08/01/20 08/01/20 History Insulin Glargine,Hum.Rec.Anlog 10 units SQ QAM 08/01/20 08/01/20 History [Lantus] NIFEdipine [Procardia XL] 90 mg PO DAILY 08/01/20 08/01/20 History - History PMHx: T1DM, ESRD on peritoneal dialysis, HTN PSHx: peritoneal dialysis port placement, digit amputation on foot, b/l cataract surgery FHx: denies Social: denies - Review of Systems ROS unobtainable: other (uncooperative with exam) - Vital signs BP: 158/79 HR: 105 RR: 12 Tmax: 98.8 Pox: 95% on RA Wt: 95.7kg - Physical Exam Constitutional: NAD -Constitutional: laying comfortably in bed. HEENT: normocephalic and atraumatic, no scleral icterus, grossly normal vision, grossly normal hearing Neck: supple Heart: RRR, normal S1/S2, no edema Lungs: CTAB, no respiratory distress Abdomen: soft -Abdomen: tenderness with palpation in RLQ where dialysis port in Musculoskeletal: normal tone Neurological: no focal deficit, CN II-XII intact -Skin: strong odor when gown is lifted up to examine dialysis port site. Area is covered with dressing that is soaked with blood -Psychiatric: uncooperative with exam FMR H&P: Results - Labs Result Diagrams: 08/01/20 02:04 08/01/20 02:04 Lab results: WBC 11.3 thou/uL (4.8-10.8) H 07/31/20 22:45 Hgb 12.4 g/dL (14.0-18.0) L 07/31/20 22:45 Hct 39.1 % (42.0-52.0) L 07/31/20 22:45 MCV 93.4 fL (78.0-98.0) 07/31/20 22:45 Plt Count 262 thou/uL (130-400) 07/31/20 22:45 Band Neuts % (Manual) 1 % (5-11) L 07/31/20 22:45 Sodium 135 mmol/L (136-145) L 07/31/20 22:21 Potassium 4.9 mmol/L (3.5-5.1) 07/31/20 22:21 Chloride 100 mmol/L (98-107) 07/31/20 22:21 Carbon Dioxide 19 mmol/L (22-29) L 07/31/20 22:21 BUN 82 mg/dL (8.9-20.6) H 07/31/20 22:21 Creatinine 20.30 mg/dL (0.7-1.3) H 07/31/20 22:21 Glucose 122 mg/dL (70-105) H 07/31/20 22:21 Calcium 8.6 mg/dL (7.8-10.44) 07/31/20 22:21 Total Bilirubin 0.6 mg/dL (0.2-1.2) 07/31/20 22:21 AST 25 U/L (5-34) 07/31/20 22:21 ALT 14 U/L (8-55) 07/31/20 22:21 Alkaline Phosphatase 64 U/L (40-110) 07/31/20 22:21 Creatine Kinase 1250 U/L (30-200) H 07/31/20 22:21 CK-MB (CK-2) 10.8 ng/mL (0-6.6) H* 07/31/20 22:45 B-Natriuretic Peptide 480.0 pg/mL (0-100) H 07/31/20 22:45 Serum Total Protein 6.7 g/dL (6.0-8.3) 07/31/20 22:21 Albumin 3.0 g/dL (3.5-5.0) L 07/31/20 22:21 Lipase 33 U/L (8-78) 07/31/20 22:21 FMR H&P: A/P - Plan Encephalopathy 2/2 CVA vs. Seizure vs. Uremic encephalopathy -patient does not have hx of seizure disorder -give ASA -CT brain pending -neuro checks q4H -nephrology consult in AM Abdominal pain possibly 2/2 peritonitis -abdominal pain surrounding PD port site -wound culture, peritonitis labs pending -will follow up results and proceed as indicated Uremia -BUN 82 -see plan above elevated CK -CK at 1250 -s/p 1L in ED -do not want to fluid overload as patient is an ESRD patient -will likely resolve with dialysis -continue to monitor indeterminate trop -.039 -denies CP -continue to trend T1DM -past admissions show T1DM, but patient won't answer what type he has -aware, continue home meds -ACCU checks ESRD on peritoneal dialysis -consult nephro in the AM -mock up maker is Dr. Gay HTN -aware, continue home meds PCP: [facility] Fluids: KVO Diet: HH, low sodium CODE: FULL DVT ppx: Heparin Dispo: admit to tele obs. Anticipated LOS < 48 hours FMR H&P: Upper Level - Plan Date/Time: 08/01/20 0108 I, Michael Uribe PGY3, have evaluated this patient and agree with findings/plan as outlined by quality assurance intern resident. Pertinent changes/additions are listed here. 45-year-old male with past medical history of end-stage renal disease, presents to the ER after strokelike symptoms. Patient was status post promethazine and very sleepy on interview and was unable to provide any information on my int erview. History gained from chart review per quality assurance intern note above. He had supposed acute onset of staring episode in front of his family and has had slow speech since. EMS reported marked R sided weakness but this had resolved on presentation to the hospital On exam patient is lethargic but he answers commands, he is in no distress, cardiopulmonary exam is within normal limits and abdomen is soft and nontender A/P Encephalopathy Likely secondary to hyperuricemia versus seizure versus stroke. Will give ASA and workup for stroke if brain CT is negative. Will await brain imaging and admit to stroke. Consult nephrology in the morning for hemodialysis versus continuing his peritoneal dialysis. Peritoneal dialysis exit site infection Purulent discharge at site, no erythema. No abdominal tenderness on my exam. Will get Gram stain and culture and base ABX on GS. End-stage renal disease Consult nephrology in the morning Uremia BUN 80, pt will need dailysis. Currently no s/s of bleeding. Nephro consult this morning Type 2 diabetes Continue home insulin, sliding scale insulin, Accu-Cheks Hypertension Continue home medications CODE STATUS: Full Addendum - Attending - Attending Attestation Date/Time: 08/01/20 0988 I personally evaluated the patient and discussed the management with Dr. Guadarrama. I agree with the History, Examination, Assessment and Plan documented above with any addition or exceptions noted below. EEG for ?seizure disorder MRI brain for hemiparesis previously Nephrology consultation with consideration for TTE.
[2020-08-01] MEDS ORDERED: Senokot S 8.6-50 MG TAB PO PRN (01:35)
[2020-08-01] MEDS ORDERED: Ondansetron ODT 4 MG TAB PO PRN (01:35)
[2020-08-01] MEDS ORDERED: Acetaminophen 325 MG TAB PO PRN (01:35)
[2020-08-01] MEDS ORDERED: HumaLOG 300 UNITS/3 ML VIAL SC PRN ×2 (01:57)
[2020-08-01] MEDS ORDERED: Dextrose 50% Abboject 50 ML SYRINGE SLOW IVP PRN (01:57)
[2020-08-01] MEDS ORDERED: Dextrose 5% in Water 1,000 ML IV PRN (01:57)
[2020-08-01 02:37] LABS: #Eosinphils 0.1 thou/uL (0.0-0.7); #Lymphocytes 1.3 thou/uL (1.20-3.40); #Monocytes 0.4 thou/uL (0.11-0.59); #Neutrophils 8.3 thou/uL (1.40-6.50); %Basophils 0.3 % (0.0-1.0); %Eosinophils 0.9 % (0.0-10.0); %Lymphocytes 12.7 % (21.0-51.0); %Monocytes 4.3 % (0.0-10.0); %Neutrophils 81.8 % (42.0-75.0); Hemoglobin 11.1 g/dL (14.0-18.0); Mean Corpuscular Hemoglobin 30.3 pg (27.0-31.0); Mean Platelet Volume 7.8 fL (7.4-10.4); Platelet Count 227 thou/uL (130-400); RBC Distribution Width 14.1 % (11.5-14.5); Red Blood Cell (RBC) Count 3.67 mill/uL (4.70-6.10); White Blood Cell (WBC) Count 10.1 thou/uL (4.8-10.8)
[2020-08-01 03:15] LABS: ALT (SGPT) 12 U/L (8-55); AST (SGOT) 22 U/L (5-34); Albumin 2.6 g/dL (3.5-5.0); Alkaline Phosphatase 58 U/L (40-110); Anion Gap 20 mmol/L (10-20); BUN (Urea Nitrogen) 85 mg/dL (8.9-20.6); Bilirubin, Total 0.5 mg/dL (0.2-1.2); Calc. Creatinine Clearance 0 mL/min (70-130); Carbon Dioxide 20 mmol/L (22-29); Chloride 101 mmol/L (98-107); Globulin 3.2 g/dL (2.4-3.5); Glucose 99 mg/dL (70-105); Protein, Total 5.8 g/dL (6.0-8.3); Sodium 136 mmol/L (136-145)
[2020-08-01] MEDS ORDERED: Aspirin 325 MG TAB ONE (04:12)
[2020-08-01] MEDS ORDERED: Aspirin 325 MG TAB PO SCH (04:30)
[2020-08-01 05:40] LABS: Troponin I 0.054 ng/mL (< 0.028)
--- NOTE | 2020-08-01 06:24 | CT ---
CT OF THE BRAIN WITHOUT CONTRAST: Date: 07/31/2020 COMPARISON: 08/12/06 HISTORY: Unresponsive on scene with right-sided weakness. Symptoms have resolved. TECHNIQUE: Multiple contiguous axial images were obtained in a CT of the brain without contrast. FINDINGS: There is enlargement of the lateral ventricles which may be secondary to hydrocephalus. No large conf luent infarction is seen. There is no evidence of intracranial hemorrhage or extra-axial fluid collec tion. Postsurgical changes are seen in the left posterior calvarium. The visualized paranasal sinuses and r ight mastoid air cells are well aerated. The patient has had prior left mastoid surgery. IMPRESSION: Prominence of the lateral ventricles may be secondary to hydrocephalus. POS: HAILEY
--- NOTE | 2020-08-01 06:34 | RAD ---
SINGLE VIEW CHEST: Date: 07/31/2020 COMPARISON: 10/01/2019. HISTORY: Stroke that had resolved on arrival. FINDINGS: Single view of the chest shows an enlarged but stable cardiomediastinal silhouette. Bilateral pulmona ry vascular enlargement is seen. Increased interstitial lung markings may represent interstitial samira a. No pleural effusion is seen. IMPRESSION: Cardiomegaly with volume overload. POS: EAA
--- NOTE | 2020-08-01 08:03 | CT ---
CT ABDOMEN AND PELVIS WITH CONTRAST: COMPARISON: 02/17/2019. HISTORY: Diffuse abdominal pain. The patient is on peritoneal dialysis. Concern for infected peritoneal dial ysis catheter. TECHNIQUE: Multiple contiguous axial images were obtained in a CT of the abdomen and pelvis with contrast. Sagi ttal and coronal reformats were performed. FINDINGS: The kidneys are small and atrophic. There is a peritoneal dialysis catheter with its tip in the left lower quadrant of the abdomen. No fluid collection is seen surrounding this catheter. The patient is status post cholecystectomy. The liver, adrenal glands, spleen, and pancreas are unre markable. There is diffuse soft tissue anasarca. The large and small bowel are normal in caliber without signi ficant abnormality. A small amount of free fluid is seen in the pelvis. No free air is seen. Atherosclerotic calcifications are seen. There is a mildly enlarged left retroperitoneal lymph node measuring 1.4 cm in size. No pelvic adenopathy is seen. There is a small right pleural effusion. The bones are unremarkable. IMPRESSION: 1. No evidence of acute intraabdominal/pelvis abnormality. 2. Nonspecific mildly enlarged retroperitoneal lymph node. This is stable compared to the prior CT. POS: EAA
--- NOTE | 2020-08-01 10:13 | MRI ---
MRI BRAIN WITHOUT CONTRAST: Date: 08/01/2020 INDICATION: Altered mental status. Correlation made to CT 07/31/2020. FINDINGS: Ventriculomegaly is again noted. Mild chronic ischemic white matter change. There is no evidence of restricted diffusion. There is no evidence of acute infarct or mass. IMPRESSION: There is ventriculomegaly consistent with hydrocephalus. The lateral ventricles and third ventricles are dilated. Fourth ventricle does not appear significantly dilated. Suggest neurosurgical consultati on. POS: BRIAN
[2020-08-01] MEDS ORDERED: NIFEdipine XL 30 MG TAB ONE (10:37)
[2020-08-01] MEDS ORDERED: Aspirin Chewable 81 MG TAB ONE (10:37)
[2020-08-01] MEDS ORDERED: Insulin Regular 300 UNITS/3 ML VIAL ONE (10:42)
[2020-08-01 10:49] LABS: SARS-CoV-2 MS2 Positive; SARS-CoV-2 N Gene Negative; SARS-CoV-2 S Gene Negative; SARS-CoV-2 by NAA Not Detected (NotDetected); SARS-CoV-2 orf1ab Negative
[2020-08-01] MEDS: Carvedilol 25 MG TAB PO SCH ×2 (11:39→17:55)
[2020-08-01] MEDS: Atorvastatin Calcium 10 MG TAB PO SCH (11:39)
[2020-08-01] MEDS: NIFEdipine XL 90 MG TAB PO SCH (11:40)
[2020-08-01] MEDS: Insulin Glargine 10 UNITS in Pre-Filled Syringe 1 EACH SC SCH (11:47)
[2020-08-01] MEDS: Heparin 5,000 UNITS/ML VIAL SC SCH ×3 (11:49→22:11)
[2020-08-01] MEDS ORDERED: Calcium Carbonate 500 MG ChewTAB ONE (12:02)
--- NOTE | 2020-08-01 14:30 | CON ---
NEUROLOGY CONSULTATION DATE OF CONSULTATION: 08/01/2020 REASON FOR CONSULTATION: New-onset seizure. HISTORY OF PRESENT ILLNESS: Mr. Montano is a 45-year-old male with medical history significant for diabetes mellitus, end-stage renal disease, on peritoneal dialysis, hypertension, presented with new-onset seizure. The patient is somnolent and unable to provide the history, so history was taken from review of the medical records. Per records, the pepper reported that he has blood on his port and he stared off in space and started grinding his teeth and stared off in space, so there was a concern about seizure. He does not have history of seizure disorder, but does have episodes, but had one episode of where he had a seizure secondary to drug interaction 10 to 15 years ago. The pepper called the EMS and per report, he was postictal and had right-sided weakness, which resolved in the emergency room. The patient denies any history of seizure disorder or head injury. In the emergency room, he was given Phenergan and Zofran. Neurology was consulted for new-onset seizure. ALLERGIES: NO KNOWN DRUG ALLERGIES. HOME MEDICATIONS: 1. Lisinopril. 2. Humalog insulin. 3. Calcium acetate. 4. Carvedilol. 5. Procardia XL. 6. Hydralazine. 7. Lipitor. PAST MEDICAL HISTORY: Diabetes; end-stage renal disease, on peritoneal dialysis; and hypertension. PAST SURGICAL HISTORY: Peritoneal dialysis, port placement, digit amputation on foot, bilateral cataract surgery. FAMILY HISTORY: No family history of seizures. SOCIAL HISTORY: The patient denies alcohol or illegal drug use. REVIEW OF SYSTEMS: Unobtainable due to the patient's mental status. PHYSICAL EXAMINATION: VITAL SIGNS: Blood pressure 158/79, pulse 100, and respiratory rate 18. CVS: Regular rate and rhythm. CHEST: Clear. ABDOMEN: Soft. NECK: Supple. NEUROLOGICAL: Mental status; the patient is alert and oriented to person, place, and time. He does have baseline confusion and somnolent at this time. Cranial nerves II through XII intact. Muscle, tone and bulk are normal. Strength 5/5 bilaterally. Sensory, intact. Cerebellar, finger-nose testing intact. Gait, deferred due to the patient's safety reason. DATA REVIEWED: I reviewed the labs, which were significant for anemia, hemoglobin of 11.1, hematocrit of 33.6. BUN of 85 and creatinine of 19.95. Head CT did not reveal any acute intracranial pathology. MRI of the brain showed ventriculomegaly, but no stroke or bleed. WBC 11.3 thou/uL (4.8-10.8) H 07/31/20 22:45 Hgb 12.4 g/dL (14.0-18.0) L 07/31/20 22:45 Hct 39.1 % (42.0-52.0) L 07/31/20 22:45 MCV 93.4 fL (78.0-98.0) 07/31/20 22:45 Plt Count 262 thou/uL (130-400) 07/31/20 22:45 Band Neuts % (Manual) 1 % (5-11) L 07/31/20 22:45 Sodium 135 mmol/L (136-145) L 07/31/20 22:21 Potassium 4.9 mmol/L (3.5-5.1) 07/31/20 22:21 Chloride 100 mmol/L (98-107) 07/31/20 22:21 Carbon Dioxide 19 mmol/L (22-29) L 07/31/20 22:21 BUN 82 mg/dL (8.9-20.6) H 07/31/20 22:21 Creatinine 20.30 mg/dL (0.7-1.3) H 07/31/20 22:21 Glucose 122 mg/dL (70-105) H 07/31/20 22:21 Calcium 8.6 mg/dL (7.8-10.44) 07/31/20 22:21 Total Bilirubin 0.6 mg/dL (0.2-1.2) 07/31/20 22:21 AST 25 U/L (5-34) 07/31/20 22:21 ALT 14 U/L (8-55) 07/31/20 22:21 Alkaline Phosphatase 64 U/L (40-110) 07/31/20 22:21 Creatine Kinase 1250 U/L (30-200) H 07/31/20 22:21 CK-MB (CK-2) 10.8 ng/mL (0-6.6) H* 07/31/20 22:45 B-Natriuretic Peptide 480.0 pg/mL (0-100) H 07/31/20 22:45 Serum Total Protein 6.7 g/dL (6.0-8.3) 07/31/20 22:21 Albumin 3.0 g/dL (3.5-5.0) L 07/31/20 22:21 Lipase 33 U/L (8-78) 07/31/20 22:21 ASSESSMENT AND PLAN: Mr. Montano is a 45-year-old male with history significant for end-stage renal disease, on peritoneal dialysis, hypertension, and diabetes, presented with episode of altered mental status, which seems to be seizure by description. By description, the MRI of the brain reviewed, which was negative for seizure focus, however, it showed ventriculomegaly and consider Neurosurgery input per radiology recommendations. Neuro checks every 4 hours. Observe seizure precaution. Ativan 2 mg IV for seizure greater than 2 minutes. Continue home medications. Strict control of blood pressure and blood glucose. EEG to rule out cortical irritability negative for seizure activity. No need for anticonvulsant at this time for first-time new onset seizures since it may be provoked seizure secondary to metabolic encephalopathy. Continue medical management per Primary Team and Nephrology. PT/OT/Speech. We will continue to follow. Further recommendations will depend on the results of the testing. Thank you for the consult. Job ID: [id number] MTDD
--- NOTE | 2020-08-01 15:12 | PDOC.EEG ---
Neurology EEG Report - Report Report: This EEG was performed using 24 channel Overtone video digital EEG machine with 24 disc electrode. This was an extended 2-hour 5 minutes of inpatient video EEG recording. Digital analysis of the EEG was done for Olman and seizure detection which revealed no abnormalities. Background: The posterior background rhythm was 8 to 8.5 Hz. Minimal reactivity seen with eye opening and closure. Hyperventilation: not performed Photic stimulation: No significant response seen with photic stimulation. Sleep: Drowsiness and sleep are observed. EEG diagnosis: Occasional irregular theta activity seen during the recording. Clinical interpretation: This EEG is consistent with mild generalized nonspecific cerebral dysfunction.
[2020-08-01 16:09] VITALS: BMI 27.0
--- NOTE | 2020-08-01 23:05 | CON ---
DATE OF CONSULTATION: 08/01/2020 CONSULTING PHYSICIAN: Dr. Guadarrama. REASON FOR CONSULTATION: End-stage renal disease evaluation and care. REASON FOR ADMISSION: Altered mentation. HISTORY OF PRESENT ILLNESS: This is a 45-year-old male with history of end-stage renal disease on peritoneal dialysis, hypertension, diabetes, came to the hospital after altered mentation. Family reports possible seizure and he was not responding to them and was taken to the hospital. The patient does not remember any events. No chest pain or palpitation. He is feeling fine. PAST MEDICAL HISTORY: Positive for end-stage renal disease on peritoneal dialysis, hypertension, and diabetes. PAST SURGICAL HISTORY: Peritoneal dialysis placement, digit amputation, bilateral cataract surgery. HOME MEDICATIONS: Reviewed. ALLERGIES: NO KNOWN DRUG ALLERGIES. SOCIAL HISTORY: No smoking, alcohol, or illicit drugs. FAMILY HISTORY: No history of kidney disease. REVIEW OF SYSTEMS: CONSTITUTIONAL: Negative for weight loss or gain, ability to conduct usual activities. SKIN: Negative for rash, itching. EYES: Negative for double vision, pain. ENT/MOUTH: Negative for nose bleeding, neck stiffness, pain, tenderness. CARDIOVASCULAR: Negative for palpitations, dyspnea on exertion, orthopnea. RESPIRATORY: Negative for shortness of breath, wheezing, cough, hemoptysis, fever or night sweats. GASTROINTESTINAL: Negative for poor appetite, abdominal pain, heartburn, nausea, vomiting, constipation, or diarrhea. GENITOURINARY: Negative for urgency, frequency, dysuria, nocturia. MUSCULOSKELETAL: Negative for pain, swelling. NEUROLOGIC/PSYCHIATRIC: Negative for anxiety, depression. ALLERGY/IMMUNOLOGIC: Negative for skin rash, bleeding tendency. PHYSICAL EXAMINATION: GENERAL: This is a well-built male, in no apparent distress. VITAL SIGNS: Temperature 98.1, pulse 82, respiratory rate 20, and blood pressure 142/85. HEENT: Atraumatic and normocephalic. Oral mucosa moist. NECK: Supple. CVS: S1 and S2. Rate and rhythm regular. RESPIRATORY: Clear. GI: Abdomen is soft. MUSCULOSKELETAL: No tenderness. No edema. DERMATOLOGIC: No skin rash. NEUROLOGIC: Alert and awake. PSYCHIATRIC: Mood and affect normal. LABORATORY DATA: Hemoglobin is 11.1, potassium 5.0, BUN is 85, and creatinine is 19.9. ASSESSMENT AND PLAN: 1. End-stage renal disease. Plan is to have a peritoneal dialysis. 2. Edema, controlled. 3. History of hypertension. 4. Anemia of chronic disease. Plan is to continue on peritoneal dialysis as tolerated and monitor mentation. Job ID: [id number]
[2020-08-02 04:44] LABS: #Basophils 0.1 thou/uL (0.0-0.2); #Eosinphils 0.3 thou/uL (0.0-0.7); #Lymphocytes 1.9 thou/uL (1.20-3.40); #Monocytes 0.6 thou/uL (0.11-0.59); #Neutrophils 3.8 thou/uL (1.40-6.50); %Basophils 1.2 % (0.0-1.0); %Eosinophils 4.3 % (0.0-10.0); %Lymphocytes 28.6 % (21.0-51.0); %Monocytes 8.7 % (0.0-10.0); %Neutrophils 57.1 % (42.0-75.0); Hemoglobin 11.5 g/dL (14.0-18.0); Mean Corpuscular HGB CONC 31.7 g/dL (32.0-36.0); Mean Corpuscular Hemoglobin 29.8 pg (27.0-31.0); Mean Corpuscular Volume 93.9 fL (78.0-98.0); Mean Platelet Volume 8.3 fL (7.4-10.4); Platelet Count 253 thou/uL (130-400); RBC Distribution Width 14.1 % (11.5-14.5); Red Blood Cell (RBC) Count 3.86 mill/uL (4.70-6.10); White Blood Cell (WBC) Count 6.6 thou/uL (4.8-10.8)
[2020-08-02 05:06] LABS: ALT (SGPT) 11 U/L (8-55); AST (SGOT) 20 U/L (5-34); Albumin 2.6 g/dL (3.5-5.0); Alkaline Phosphatase 59 U/L (40-110); Anion Gap 20 mmol/L (10-20); BUN (Urea Nitrogen) 89 mg/dL (8.9-20.6); Bilirubin, Total 0.5 mg/dL (0.2-1.2); CK (CPK) 1141 U/L (30-200); Calc. Creatinine Clearance 6 mL/min (70-130); Carbon Dioxide 21 mmol/L (22-29); Chloride 100 mmol/L (98-107); Globulin 3.1 g/dL (2.4-3.5); Glucose 149 mg/dL (70-105); Potassium 4.5 mmol/L (3.5-5.1); Protein, Total 5.7 g/dL (6.0-8.3); Sodium 136 mmol/L (136-145)
--- NOTE | 2020-08-02 05:38 | PDOC.FM ---
- Subjective Subjective: Patient was sleeping comfortable upon arrival to the room. Denies pain overnight. Reports drainage from catheter has resolved. Underwent peritoneal dialysis last pm. - Objective MAR Reviewed: Yes Vital Signs & Weight: Vital Signs (12 hours) Temp Pulse Resp BP Pulse Ox 08/02/20 03:25 96 08/02/20 03:00 98.8 F 58 L 14 149/79 H 94 L 08/01/20 23:00 99.0 F 88 16 141/82 H 96 08/01/20 19:00 97.7 F 80 16 127/74 93 L Weight Weight 95.453 kg Result Diagrams: 08/02/20 04:22 08/02/20 04:22 Phys Exam - Physical Examination Constitutional: NAD HEENT: moist MMs, sclera anicteric Neck: full ROM Respiratory: no wheezing, clear to auscultation bilateral Cardiovascular: RRR, no significant murmur Gastrointestinal: soft, non-tender, positive bowel sounds Musculoskeletal: edema present (2+ pitting edema) Neurological: non-focal Psychiatric: normal affect, A&O x 3 Skin: no rash Dx/Plan - Plan Plan: Likely seizure 2/2 metabolic encephalopathy -No hx of seizure disorder -MRI: ventriculomegaly -EEG: mild generalized nonspecific cerebral dysfunction -No intervention per neurosurgery -Prudencio, neurology, consulted. No seizure ppx at this time -Neuro checks q4H -Continue ASA 81mg daily Concern for peritonitis -Abdominal pain and drainage at PD port site, now resolved -F/u wound culture Uremia -BUN 82 on admission, now 89 -Likely contributing to encephalopathy Elevated CK -CK at 1250 on admission. Now 1141 s/p 1 L in ED -Likely improved due to dialysis -continue to monitor Indeterminate trop -0.039-> 0.054 -EKG PRN for chest pain T1DM -past admissions show T1DM, but patient won't answer what type he has -Continue home insulin -ACCU checks ESRD on peritoneal dialysis -Consulted nephrology, Dr. Gay -Underwent dialysis 12/4 pm HTN -Continue home meds PCP: [facility] CODE: FULL DVT ppx: Heparin Dispo: Home pending further medical management Addendum - Attending - Attending Attestation Date/Time: 08/02/20 6400 I personally evaluated the patient and discussed the management with Dr. Kev wells I agree with the History, Examination, Assessment and Plan documented above with any addition or exceptions noted below. Encephalopathy- possible seizure- resolved. Patient at baseline ESRD- on peritoneal dialysis- no sign of SBP by fluid analysis Rhabdo- elevated CK but no known cause. No fluids due to dialysis. Nephro will help with dialysis changes tonight and repeat CK in the am.
[2020-08-02] MEDS: Calcium Carbonate 500 MG ChewTAB PO PRN ×3 (08:36→19:00)
[2020-08-02] MEDS: Atorvastatin Calcium 10 MG TAB PO SCH (08:36)
[2020-08-02] MEDS: NIFEdipine XL 90 MG TAB PO SCH (08:36)
[2020-08-02] MEDS: Carvedilol 25 MG TAB PO SCH ×2 (08:36→16:03)
[2020-08-02] MEDS: Aspirin 81 mg Enteric Coated Tablet PO SCH (08:36)
[2020-08-02] MEDS: Insulin Glargine 10 UNITS in Pre-Filled Syringe 1 EACH SC SCH (08:37)
[2020-08-02] MEDS: Heparin 5,000 UNITS/ML VIAL SC SCH ×3 (08:39→20:45)
[2020-08-02] MEDS ORDERED: Lactated Ringer's 1,000 ML IV SCH (08:45)
[2020-08-02 09:45] LABS: RBC Count-Automated (BF) 22 /cu.mm; WBC/Nucleated-Auto (BF) 22 uL
[2020-08-02 09:47] LABS: BF Color Colorless; Body Fluid Source Peritoneal Fluid; Clarity Clear (Clear)
[2020-08-02 11:04] LABS: BF Segmented Neutrophils 3 %; Cell Count Non Hematic 84 %; Lymphocytes 13 %
--- NOTE | 2020-08-02 11:27 | EKG ---
Test Reason : TACHHYCARDIA Blood Pressure : / mmHG Vent. Rate : 103 BPM Atrial Rate : 103 BPM P-R Int : 156 ms QRS Dur : 084 ms QT Int : 356 ms P-R-T Axes : 070 054 060 degrees QTc Int : 466 ms Sinus tachycardia with Premature atrial complexes Possible Left atrial enlargement Borderline ECG Confirmed by GIACOMO TATUM ([id number]), rewrite editor PHANI CLARK ([id number]) on 08/02/2020 11:27:00 AM Referred By: Confirmed By:GIACOMO TATUM
--- NOTE | 2020-08-02 11:41 | PRG ---
DATE OF SERVICE: 08/02/2020 SUBJECTIVE: Patient was seen and examined at bedside and overnight events noted. Patient denies any shortness of breath or chest pain or palpitation. No history of nausea or vomiting or diarrhea or fever or chills or cramps. OBJECTIVE: General: This is well-built male, in no apparent distress. Vital Signs: Temperature 98.4. Heart Rate 80. Respiratory rate 20. Blood pressure 179/90. HEENT: Atraumatic, normocephalic. Oral mucosa is moist. Neck: Supple. Cardiovascular: S1, S2 heard. Rate and rhythm regular. Respiratory: Clear to auscultation. Gastrointestinal: Abdomen is soft. Musculoskeletal: No tenderness. No edema. Dermatologic: No skin rash. Neurologic: Alert and awake and oriented x3. No focal neurologic deficits. Moving all the extremities. Psychiatric: Mood and affect normal. LABORATORY DATA: Potassium 4.5, BUN is 89, and creatinine is 21.1. CK level is 1141. ASSESSMENT AND PLAN: 1. End-stage renal disease. We will continue on peritoneal dialysis. We will increase clearance today. 2. Edema. 3. Hypertension. 4. Anemia of chronic disease. 5. Elevated CK level. We will stop statin drugs and monitor. Encourage fluid intake and we will add an extra exchange today with PD for better clearance. 6. We will continue to follow. Job ID: [id number]
[2020-08-03] MEDS ORDERED: hydrALAZINE 20 MG/ML VIAL SLOW IVP PRN (03:42)
--- NOTE | 2020-08-03 05:50 | PDOC.FM ---
- Subjective Subjective: Patient states he feels dry since undergoing dialysis yesterday. He denies headache, vision changes, chest pain, SOB and abdominal pain. Experienced nausea yesterday when BP was elevated but notes this has since resolved. - Objective MAR Reviewed: Yes Vital Signs & Weight: Vital Signs (12 hours) Temp Pulse Resp BP Pulse Ox 08/03/20 04:28 97 08/03/20 04:00 97.8 F 82 20 181/103 H 97 08/03/20 00:00 98.2 F 85 18 167/88 H 95 08/02/20 20:00 98.2 F 79 18 136/79 95 Weight Weight 95.453 kg I&O: 08/01/20 08/02/20 08/03/20 06:59 06:59 06:59 Output Total 1140 Balance -1140 Result Diagrams: 08/03/20 11:37 08/03/20 11:37 Phys Exam - Physical Examination Constitutional: NAD HEENT: moist MMs, sclera anicteric Neck: full ROM Respiratory: no wheezing, clear to auscultation bilateral Cardiovascular: RRR, no significant murmur Gastrointestinal: soft, non-tender, positive bowel sounds Musculoskeletal: edema present (trace pitting edema) Neurological: moves all 4 limbs Psychiatric: normal affect, A&O x 3 Skin: no rash Dx/Plan - Plan Plan: Likely seizure 2/2 metabolic encephalopathy, now resolved -No hx of seizure disorder -MRI: ventriculomegaly -EEG: mild generalized nonspecific cerebral dysfunction -No intervention per neurosurgery -Prudencio, neurology, consulted. No seizure ppx at this time -Neuro checks q4H -Continue ASA 81mg daily Concern for peritonitis, ruled out -Abdominal pain and drainage at PD port site, now resolved -Fluid cell count 22 with 3% neutrophils -F/u wound culture Uremia -BUN 82 on admission, now 89 -Likely contributing to encephalopathy Elevated CK -CK at 1250 on admission. Now 1141 s/p 1 L in ED. Chronically 800-900s -Likely improved due to dialysis -Additional exchange in dialysis on 08/02 Indeterminate trop -0.039-> 0.054 -EKG PRN for chest pain T1DM -past admissions show T1DM, but patient won't answer what type he has -Continue home insulin -ACCU checks ESRD on peritoneal dialysis -Consulted nephrology, Dr. Vasuduev -Underwent dialysis 08/01, 08/02 HTN BP elevated to 181.103 yesterday afternoon, required hydralazine 10mg -Continue home meds -Hydralazine PRN -Monitor BP PCP: [facility] CODE: FULL DVT ppx: Heparin Dispo: Home pending further medical management Addendum - Attending - Attending Attestation Date/Time: 08/03/20 7688 I personally evaluated the patient and discussed the management with Dr. Rossy novoa. I agree with the History, Examination, Assessment and Plan documented above with any addition or exceptions noted below. Encephalopathy- resolved HTN- on coreg and procardia. Elevated in the early am but stable during the day. 2nd degree AV block- asymptomatic. Will decrease dose of coreg and watch bp. may need to increase dose of procardia. ESRD- on PD per nephro Elevated CK- stable and not decreasing. Continue to monitor. Expect d/c tomorrow.
[2020-08-03] MEDS: Heparin 5,000 UNITS/ML VIAL SC SCH ×3 (08:33→20:37)
[2020-08-03] MEDS: Carvedilol 25 MG TAB PO SCH (08:33)
[2020-08-03] MEDS: Aspirin 81 mg Enteric Coated Tablet PO SCH (08:33)
[2020-08-03] MEDS: Insulin Glargine 10 UNITS in Pre-Filled Syringe 1 EACH SC SCH (08:33)
[2020-08-03] MEDS: NIFEdipine XL 90 MG TAB PO SCH (09:10)
[2020-08-03 11:55] LABS: #Eosinphils 0.1 thou/uL (0.0-0.7); #Lymphocytes 0.9 thou/uL (1.20-3.40); #Monocytes 0.4 thou/uL (0.11-0.59); #Neutrophils 6.9 thou/uL (1.40-6.50); %Basophils 0.5 % (0.0-1.0); %Eosinophils 1.3 % (0.0-10.0); %Monocytes 4.3 % (0.0-10.0); %Neutrophils 82.8 % (42.0-75.0); Hemoglobin 11.6 g/dL (14.0-18.0); Mean Corpuscular HGB CONC 32.1 g/dL (32.0-36.0); Mean Corpuscular Hemoglobin 29.4 pg (27.0-31.0); Mean Corpuscular Volume 91.6 fL (78.0-98.0); Mean Platelet Volume 8.4 fL (7.4-10.4); Platelet Count 322 thou/uL (130-400); RBC Distribution Width 14.2 % (11.5-14.5); Red Blood Cell (RBC) Count 3.94 mill/uL (4.70-6.10); White Blood Cell (WBC) Count 8.3 thou/uL (4.8-10.8)
[2020-08-03 12:07] LABS: ALT (SGPT) 16 U/L (8-55); AST (SGOT) 25 U/L (5-34); Albumin 2.7 g/dL (3.5-5.0); Alkaline Phosphatase 58 U/L (40-110); Anion Gap 21 mmol/L (10-20); BUN (Urea Nitrogen) 81 mg/dL (8.9-20.6); Bilirubin, Total 0.5 mg/dL (0.2-1.2); CK (CPK) 1169 U/L (30-200); Calc. Creatinine Clearance 6 mL/min (70-130); Calcium 7.9 mg/dL (7.8-10.44); Carbon Dioxide 20 mmol/L (22-29); Chloride 100 mmol/L (98-107); Globulin 3.4 g/dL (2.4-3.5); Glucose 143 mg/dL (70-105); Protein, Total 6.1 g/dL (6.0-8.3); Sodium 136 mmol/L (136-145)
--- NOTE | 2020-08-03 14:53 | PRG ---
DATE OF SERVICE: 08/03/2020 SUBJECTIVE: Patient was seen and examined at bedside and overnight events noted. Patient denies any shortness of breath or chest pain or palpitation. No history of nausea or vomiting or diarrhea or fever or chills or cramps. OBJECTIVE: GENERAL: This is a well-built male, in no apparent distress. VITAL SIGNS: Temperature 98.1. Heart Rate 87. Respiratory rate 16. Blood pressure 160/82. HEENT: Atraumatic, normocephalic. Oral mucosa is moist. NECK: Supple. CARDIOVASCULAR: S1, S2 heard. Rate and rhythm regular. RESPIRATORY: Clear to auscultation. GASTROINTESTINAL: Abdomen is soft. MUSCULOSKELETAL: No tenderness. No edema. DERMATOLOGIC: No skin rash. NEUROLOGIC: Alert and awake and oriented x3. No focal neurologic deficits. Moving all the extremities. PSYCHIATRIC: Mood and affect normal. LABORATORY DATA: Potassium 5.0, BUN is 81, and creatinine is 21.4. ASSESSMENT AND PLAN: 1. End-stage renal disease. Continue on peritoneal dialysis as tolerated. 2. Edema, remove fluids. 3. Hypertension. 4. Anemia of chronic disease. 5. Elevated CK level. Labs are stable. The patient might need increased PD, which might need to be figured out as outpatient. We will follow. Job ID: [id number]
[2020-08-03] MEDS: Carvedilol 6.25 MG TAB PO SCH (17:15)
[2020-08-03] MEDS: Calcium Carbonate 500 MG ChewTAB PO PRN (17:17)
[2020-08-04 05:00] LABS: #Eosinphils 0.3 thou/uL (0.0-0.7); #Lymphocytes 2.1 thou/uL (1.20-3.40); #Monocytes 0.7 thou/uL (0.11-0.59); #Neutrophils 4.7 thou/uL (1.40-6.50); %Basophils 0.4 % (0.0-1.0); %Eosinophils 3.8 % (0.0-10.0); %Lymphocytes 27.3 % (21.0-51.0); %Monocytes 8.8 % (0.0-10.0); %Neutrophils 59.7 % (42.0-75.0); Hemoglobin 11.5 g/dL (14.0-18.0); Mean Corpuscular HGB CONC 31.2 g/dL (32.0-36.0); Mean Corpuscular Hemoglobin 29.1 pg (27.0-31.0); Mean Corpuscular Volume 93.4 fL (78.0-98.0); Mean Platelet Volume 8.2 fL (7.4-10.4); Platelet Count 344 thou/uL (130-400); RBC Distribution Width 14.4 % (11.5-14.5); Red Blood Cell (RBC) Count 3.95 mill/uL (4.70-6.10); White Blood Cell (WBC) Count 7.8 thou/uL (4.8-10.8)
[2020-08-04 05:35] LABS: ALT (SGPT) 14 U/L (8-55); AST (SGOT) 20 U/L (5-34); Albumin 2.5 g/dL (3.5-5.0); Alkaline Phosphatase 56 U/L (40-110); Anion Gap 20 mmol/L (10-20); BUN (Urea Nitrogen) 77 mg/dL (8.9-20.6); Bilirubin, Total 0.5 mg/dL (0.2-1.2); CK (CPK) 1054 U/L (30-200); Calc. Creatinine Clearance 6 mL/min (70-130); Calcium 7.9 mg/dL (7.8-10.44); Carbon Dioxide 20 mmol/L (22-29); Chloride 100 mmol/L (98-107); Globulin 3.1 g/dL (2.4-3.5); Glucose 149 mg/dL (70-105); Potassium 4.1 mmol/L (3.5-5.1); Protein, Total 5.6 g/dL (6.0-8.3); Sodium 136 mmol/L (136-145)
--- NOTE | 2020-08-04 06:38 | PDOC.FM ---
- Subjective Subjective: Mr. Montano is feeling well this morning and feeling "like himself." He denies headache, CP, SOB, abdominal pain, nausea or vomiting. Patient states he really needs to get out of here today because he can't afford to be in the hospital much longer. 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 - Objective Vital Signs & Weight: Vital Signs (12 hours) Temp Pulse Resp BP Pulse Ox 08/04/20 03:00 98.2 F 81 16 161/86 H 99 08/03/20 23:00 98.6 F 89 16 168/75 H 98 08/03/20 19:55 98.3 F 92 16 153/84 H 94 L Weight Weight 95.453 kg I&O: 08/02/20 08/03/20 08/04/20 06:59 06:59 06:59 Intake Total 610 Output Total 1140 Balance -530 Result Diagrams: 08/04/20 04:23 08/04/20 04:23 EKG Reviewed by me: Yes (tele: SR 70-90s, PVCs) Phys Exam - Physical Examination Constitutional: NAD HEENT: moist MMs, sclera anicteric Neck: full ROM Respiratory: no wheezing, clear to auscultation bilateral Cardiovascular: RRR, no significant murmur Gastrointestinal: soft, non-tender, no distention Musculoskeletal: pulses present Neurological: moves all 4 limbs Psychiatric: normal affect, A&O x 3 Skin: no rash Dx/Plan - Plan Plan: Likely seizure 2/2 metabolic encephalopathy, now resolved -No hx of seizure disorder -MRI: ventriculomegaly. -EEG: mild generalized nonspecific cerebral dysfunction -No intervention per neurosurgery -Prudencio, neurology, consulted. No seizure ppx at this time -Neuro checks q4H -Continue ASA 81mg daily HTN -BP 195/96 this AM -Decreased coreg yesterday due to presence of 2nd degree AVB. Patient was in sinus rhythm with occassional PVCs throughout the evening. -Increase procardia today for better BP control -Hydralazine PRN -Monitor BP Concern for peritonitis, ruled out -Abdominal pain and drainage at PD port site, now resolved -Fluid cell count 22 with 3% neutrophils -F/u wound culture Uremia -BUN 82 on admission, now 77 -Likely contributed to encephalopathy -Nephrology consulted Elevated CK -CK at 1250 on admission. 1141 s/p 1 L in ED. 1054 today. Chronically 800-900s -Likely improved due to dialysis -Additional exchange dialysis on 08/02 -Will continue to follow Indeterminate trop -0.039-> 0.054 -EKG PRN for chest pain T1DM -past admissions show T1DM, but patient won't answer what type he has -Continue home insulin -ACCU checks ESRD on peritoneal dialysis -Consulted nephrology, Dr. Gay -Underwent dialysis 08/01, 08/02 -Touch base with Dr. Ellsworth today to see if patient is ready for discharge and outpatient follow-up with him PCP: [facility] CODE: FULL DVT ppx: Heparin Dispo: Likely discharge home today pending Nephrology recommendations for outpatient vs continued inpatient treatment. Will increase procardia today and recheck BP. Addendum - Attending - Attending Attestation Date/Time: 08/04/20 1112 I personally evaluated the patient and discussed the management with Dr. Cohn. I agree with the History, Examination, Assessment and Plan documented above with any addition or exceptions noted below. Patient feeling well. Monitoring BP today after medication adjustments and hope ful d/c later today with continued mgmt of his PD by Nephro outpatient.
[2020-08-04] MEDS: NIFEdipine XL 90 MG TAB PO SCH (08:43)
[2020-08-04] MEDS: Carvedilol 6.25 MG TAB PO SCH (08:44)
[2020-08-04] MEDS: Insulin Glargine 10 UNITS in Pre-Filled Syringe 1 EACH SC SCH (08:44)
[2020-08-04] MEDS: Aspirin 81 mg Enteric Coated Tablet PO SCH (08:44)
[2020-08-04] MEDS: Heparin 5,000 UNITS/ML VIAL SC SCH (08:44)
[2020-08-04] MEDS ORDERED: NIFEdipine XL 30 MG TAB PO SCH (10:15)
--- NOTE | 2020-08-04 10:54 | PRG ---
DATE OF SERVICE: 08/04/2020 SUBJECTIVE: Patient was seen and examined at bedside and overnight events noted. Patient denies any shortness of breath or chest pain or palpitation. No history of nausea or vomiting or diarrhea or fever or chills or cramps. OBJECTIVE: General: This is a well-built male, in no apparent distress. Vital Signs: Temperature 97.6. Heart rate 82. Respiratory rate 16. Blood pressure 194/96. HEENT: Atraumatic, normocephalic. Oral mucosa is moist. Neck: Supple. Cardiovascular: S1, S2 heard. Rate and rhythm regular. Respiratory: Clear to auscultation. Gastrointestinal: Abdomen is soft. Musculoskeletal: No tenderness. No edema. Dermatologic: No skin rash. Neurologic: Alert and awake and oriented x3. No focal neurologic deficits. Moving all the extremities. Psychiatric: Mood and affect normal. LABORATORY DATA: Potassium 4.1, BUN is 77, creatinine is 20.6. ASSESSMENT AND PLAN: 1. End-stage renal disease. Continue on peritoneal dialysis as tolerated. 2. Edema. We will remove fluid. 3. Hypertension. 4. Anemia of chronic disease. 5. Elevated CK level. 6. Continue peritoneal dialysis as tolerated. Encourage protein intake. We will follow. Job ID: [id number]
[2020-08-04 11:51] VITALS: TEMP 98.3
[2020-08-04 12:14] VITALS: BP 154/62
--- NOTE | 2020-08-04 12:35 | PDOC.NEUPN ---
- Subjective Encounter Date: 08/04/20 Subjective: Mr. Montano has no further seizures since admission. He denies any new complaints. - Objective Vital Signs & Weight: Vital Signs (12 hours) Temp Pulse Resp BP Pulse Ox 08/04/20 12:14 154/62 H 08/04/20 11:49 98.3 F 76 14 98 08/04/20 10:42 162/70 H 08/04/20 08:40 185/80 H 08/04/20 07:00 97.6 F 83 16 195/96 H 94 L 08/04/20 03:00 98.2 F 81 16 161/86 H 99 Weight Weight 202 lb 11.2 oz I&O: 08/03/20 08/04/20 08/05/20 06:59 06:59 06:59 Intake Total 610 Output Total 1140 1742 Balance -500 -7317 Result Diagrams: 08/04/20 04:23 08/04/20 04:23 Additional Labs: Accuchecks 08/04/20 08/04/20 08/03/20 10:35 05:02 21:04 POC Glucose 138 H 158 H 167 H 08/03/20 17:08 POC Glucose 145 H Radiology Reviewed by me: Yes EKG Reviewed by me: Yes ROS - Review of Systems Constitutional: denies: fever, chills, sweats, weakness, malaise, other Eyes: denies: pain, vision change, conjunctivae inflammation, eyelid inflammation, redness, other ENT: denies: ear pain, ear discharge, nose pain, nose discharge, nose congestion, mouth pain, mouth swelling, throat pain, throat swelling, other Gastrointestinal: denies: nausea, vomiting, abdominal pain, diarrhea, constipation, melena, hematochezia, other All Systems: All other systems reviewed; all pertinent +/- noted in HPI/Subj - Medication Medications: Active Medications Generic Name Dose Route Start Last Admin Trade Name Freq PRN Reason Stop Dose Admin Aspirin 81 mg 08/02/20 09:00 08/04/20 08:44 Aspirin 81 Mg Enteric Coated Tablet PO 81 mg DAILY MUSTAPHA Administration Calcium Carbonate 1,000 mg 08/01/20 01:35 08/03/20 17:17 Calcium Carbonate 500 Mg Chewtab PO 1,000 mg Q4H PRN Administration Heartburn or Indigestion Carvedilol 12.5 mg 08/03/20 17:00 08/04/20 08:44 Carvedilol 6.25 Mg Tab PO 12.5 mg BID-WM MUSTAPHA Administration Heparin Sodium (Porcine) 5,000 units 08/01/20 09:00 08/04/20 08:44 Heparin 5,000 Units/Ml Vial SC 5,000 units TID MUSTAPHA Administration Hydralazine HCl 10 mg 08/03/20 03:42 08/03/20 04:13 Hydralazine 20 Mg/Ml Vial SLOW IVP 10 mg Q4H PRN Administration SBP Greater Than 180 Insulin Glargine 10 units/ 0.1 mls @ 0 mls/hr 08/01/20 09:00 08/04/20 08:44 Miscellaneous Medication SC Not Given QAM [facility] Ondansetron HCl 4 mg 08/01/20 01:35 08/03/20 08:33 Ondansetron Odt 4 Mg Tab PO 4 mg Q6H PRN Administration Nausea/Vomiting - Exam General Appearance: awake alert Eye: PERRL ENT: normocephalic atraumatic Neck: supple Respiratory: CTAB Cardiovascular: RRR Gastrointestinal: soft Extremities: no cyanosis Skin: normal turgor Neurological: CN's grossly intact, normal sensation to touch, no weakness, no focal deficits, no new deficit Musculoskeletal: normal tone, normal strength, no muscle wasting PSYCH: normal affect, normal behavior, A&O x 3, oriented to person, oriented to place, oriented to time Results - Labs Result Diagrams: 08/04/20 04:23 08/04/20 04:23 Lab results: WBC 7.8 thou/uL (4.8-10.8) 08/04/20 04:23 Hgb 11.5 g/dL (14.0-18.0) L 08/04/20 04:23 Hct 36.9 % (42.0-52.0) L 08/04/20 04:23 MCV 93.4 fL (78.0-98.0) 08/04/20 04:23 Plt Count 344 thou/uL (130-400) 08/04/20 04:23 Neutrophils % 59.7 % (42.0-75.0) 08/04/20 04:23 Band Neuts % (Manual) 1 % (5-11) L 07/31/20 22:45 Sodium 136 mmol/L (136-145) 08/04/20 04:23 Potassium 4.1 mmol/L (3.5-5.1) 08/04/20 04:23 Chloride 100 mmol/L (98-107) 08/04/20 04:23 Carbon Dioxide 20 mmol/L (22-29) L 08/04/20 04:23 BUN 77 mg/dL (8.9-20.6) H 08/04/20 04:23 Creatinine 20.68 mg/dL (0.7-1.3) H 08/04/20 04:23 Glucose 149 mg/dL (70-105) H 08/04/20 04:23 Calcium 7.9 mg/dL (7.8-10.44) 08/04/20 04:23 Total Bilirubin 0.5 mg/dL (0.2-1.2) 08/04/20 04:23 AST 20 U/L (5-34) 08/04/20 04:23 ALT 14 U/L (8-55) 08/04/20 04:23 Alkaline Phosphatase 56 U/L (40-110) 08/04/20 04:23 Creatine Kinase 1054 U/L (30-200) H 08/04/20 04:23 CK-MB (CK-2) 10.8 ng/mL (0-6.6) H* 07/31/20 22:45 Troponin I 0.054 ng/mL (< 0.028) H 08/01/20 05:03 B-Natriuretic Peptide 480.0 pg/mL (0-100) H 07/31/20 22:45 Serum Total Protein 5.6 g/dL (6.0-8.3) L 08/04/20 04:23 Albumin 2.5 g/dL (3.5-5.0) L 08/04/20 04:23 Lipase 33 U/L (8-78) 07/31/20 22:21 - Radiology Interpretation MRI - head Additional Comment: MRI of the brain reviewed which did not reveal acute intracranial pathology PN A/P (1) New onset seizure Code(s): R56.9 - UNSPECIFIED CONVULSIONS Status: Acute (2) CKD stage 4 due to type 2 diabetes mellitus Code(s): E11.22 - TYPE 2 DIABETES MELLITUS W DIABETIC CHRONIC KIDNEY DISEASE; N18.4 - CHRONIC KIDNEY DISEASE, STAGE 4 (SEVERE) Status: Acute (3) Gastroparesis Code(s): K31.84 - GASTROPARESIS Status: Acute (4) Hypertensive urgency Code(s): I16.0 - HYPERTENSIVE URGENCY Status: Acute (5) Chronic kidney disease with peritoneal dialysis as preferred modality, stage 5 Code(s): N18.5 - CHRONIC KIDNEY DISEASE, STAGE 5 Status: Chronic (6) HTN (hypertension) Code(s): I10 - ESSENTIAL (PRIMARY) HYPERTENSION Status: Chronic (7) Type I diabetes mellitus Status: Chronic - Plan Daily Plan: PT/OT, DVT proph w/SCDs Mr. Adan is a 45-year-old male with history significant for end-stage renal disease on peritoneal dialysis, diabetes mellitus, hypertension presented with new onset seizure-like activity. No prior history of seizures. Most likely provoked seizure in the setting of metabolic issues . EEG reviewed which was negative for seizure activity. MRI of the brain reviewed which was negative for seizure focus or acute intracranial process. Neurochecks every 4 hours. Ativan 2 mg IV for seizure greater than 2 minutes. No need to start an anticonvulsant this is a first-time seizure and MRI of the brain and EEG were negative. Continue home medications. Continue medical management per primary team. PT/OT DVT prophylaxis. Plan discussed in detail with the patient and the nursing staff.
--- NOTE | 2020-08-04 16:37 | EKG ---
Test Reason : Blood Pressure : / mmHG Vent. Rate : 087 BPM Atrial Rate : 087 BPM P-R Int : 184 ms QRS Dur : 098 ms QT Int : 390 ms P-R-T Axes : 072 064 075 degrees QTc Int : 469 ms Poor data quality, interpretation may be adversely affected Normal sinus rhythm Possible Left atrial enlargement When compared with ECG of 31-JUL-2020 22:45, Premature atrial complexes are no longer Present Nonspecific T wave abnormality, improved in Lateral leads Confirmed by DR. Yaneli ROMERO (3) on 08/04/2020 4:36:49 PM Referred By: BISHNU Confirmed By:DR. Yaneli ROMERO
[2020-08-05] MEDS ORDERED: NIFEdipine XL 60 MG TAB PO SCH (09:00)
--- NOTE | 2020-08-05 11:48 | DIS ---
DATE OF ADMISSION: 08/04/2020 DATE OF DISCHARGE: 08/04/2020 RESIDENT: Preston Cohn M.D. ADMITTING ATTENDING: Spike Porter M.D. DISCHARGE ATTENDING: Jamaal Rosales M.D. CONSULT: 1. Nephrology, Dr. Ellsworth. 2. Neurology, Dr. Flannery. PROCEDURES: 1. Abdomen and pelvis CT showed no evidence of acute abnormality and nonspecific mildly enlarged retroperitoneal lymph node that was stable compared to prior CT. 2. Brain CT, which showed prominence of lateral ventricles secondary to hydrocephalus. 3. Chest x-ray show cardiomegaly with volume overload. 4. Electrocardiogram shows sinus tachycardia with PACs. 5. Brain MRI showed ventriculomegaly consistent with hydrocephalus. 6. EEG showed mild generalized nonspecific cerebral dysfunction. PRIMARY DIAGNOSES: 1. First-time seizure secondary to metabolic encephalopathy. 2. Hypertension. SECONDARY DIAGNOSES: 1. Peritonitis, ruled out. 2. Uremia. 3. Elevated CK. 4. Indeterminate stroke. 5. Diabetes. 6. End-stage renal disease on peritoneal dialysis. DISCHARGE MEDICATIONS: 1. Calcium 667 mg two caps p.o. t.i.d. 2. Aspirin 81 mg p.o. daily. 3. Lantus 10 units subcu in the morning. 4. Coreg 12.5 mg p.o. b.i.d. 5. Procardia 120 mg p.o. daily. Discontinued Medications: 1. Humalog. 2. Coreg 25 mg p.o. t.i.d. 3. Procardia 60 mg p.o. daily. HISTORY OF PRESENT ILLNESS AND BRIEF HOSPITAL COURSE: Mr. Montano is a 45-year-old male with a past medical history of diabetes, end-stage renal disease on peritoneal dialysis, and hypertension, who presented with altered mental status. Patient told the ED that his fiancee noticed blood on the dressing for his PD port and stared out after looking down and had grinding and clenching of his teeth. The patient's fiancee seemed to be describing a seizure. The patient does not have a history of a seizure disorder, but did have one episode 10 to 15 years ago, where he had a seizure secondary to drug interaction while hospitalized. As per EMS report, patient seemed to be postictal and had right-sided weakness, which resolved per ED physician upon initial encounter. The patient did not provide additional history rather stating he just fell asleep and does not remember what happened. The patient reported compliance with daily peritoneal dialysis. On admission, patient was afebrile. White blood cell count was 11.3, BUN was 82 and creatinine was 20.30. Troponin was 0.039. The patient's EKG showed no ST changes. Troponins were trended and negative. Nephrology was consulted. The patient's fruit loader is Dr. Ellsworth. Dr. Ellsworth evaluated patient and continued peritoneal dialysis. The following day after admission, patient was back to baseline, had no recollection of the event the night before. Neurology was consulted and Dr. Flannery performed an EEG, which showed generalized nonspecific cerebral dysfunction. It was suspected that the patient experienced a first-time seizure secondary to metabolic encephalopathy likely due to uremic state. The patient was also noted to have ventriculomegaly and hydrocephalus on CT and MRI of the brain. The patient has history of hydrocephalus. Reports he has not had problems with it for many years, having a surgery many years ago. Curbside consult with neurosurgery was conducted. Neurosurgery said the patient should follow up outpatient for his hydrocephalus as he is asymptomatic at this time. The patient did have an episode of first- degree AV block due to this Coreg was decreased. For better blood pressure control, patient's Procardia was increased. The patient was discharged home on increased Procardia and decrease Coreg and told to follow up outpatient with Neurosurgery for his hydrocephalus and Dr. Ellsworth, his fruit loader for further management of his peritoneal dialysis. DISPOSITION: Stable. DISCHARGE INSTRUCTIONS: 1. Location: Home. 2. Diet: Regular. 3. Activity: As tolerated. 4. Follow up with PCP. Follow up with Neurosurgery for hydrocephalus. Follow up with Dr. Ellsworth for dialysis management. Job ID: [id number] [facility]
--- NOTE | 2020-08-06 03:30 | PQF ---
CLINICAL DOCUMENTATION CLARIFICATION FORM: Dear : Lyndsay Flannery Date / Time: 08/06/20 1560 Please exercise your independent, professional judgment in responding to the clarification form. Clinical indicators are provided on the bottom of this form for your review In your clinical opinion based on clinical findings below can you please identify the etiology of Seizure if due to: Please check appropriate box(es): [ ] ESRD [ ] Rhadbomyolysis [ x ] Other diagnosis _Most likely due to metabolic issues but unable to clearly determine [ x] Unable to determine Physician Signature: Lyndsay Flannery Date/Time:08/06/2020 For continuity of documentation, please document condition throughout progress notes and discharge summary. Thank You. To be completed by CDI/Coding staff for physician review: Present Clinical Indicators - Signs / Symptoms / Labs Results and Location in Medical Record [X] Creatinine 20.30, BUN 82, GFR 2, Creatinine Kinase 1250 Laboratory 07/31 [X] BP 180/110, Pulse 96, Resp 15, Temp 98.8 Vital signs 07/31 [X] Does not have hx of seizure disorder, but did have one episode 10-15 years ago H&P p1 08/01 Dr Guadarrama [X] Encephalopathy 2/2 CVA vs Seizure vs Uremic Encephalopathy H&P p4 08/01 Dr Guadarrama [X] Uremia H&P p4 08/01 Dr Guadarrama [X] new onset of seizures, it may be provoked seizure 2/[address] Flannery 08/01 [X] Rhadomylysis Neuro PN p3 08/04 Dr Flannery Present Risk Factors Results and Location in Medical Record [X] HTN H&P p1 08/01 Dr Guadarrama [X] DM H&P p1 08/01 Dr Guadarrama [X] ESRD on PD H&P p1 08/01 Dr Guadarrama [X] Gastroparesisis Neuro PN p3 08/04 Dr Flannery Present Treatments Results and Location in Medical Record [X] IV Phenergan 25 mg MAR 07/31 [X] Insulin 10 units MAR 07/31 [X] Peritoneal Dialysis Nephrology panel 08/02 [X] Neuro consult Consult Dr Flannery 08/01 [X] Nephrology Consult Consult Dr Ellsworth 08/02 CDS/Animal Trapper Signature: Maria Esther Osorio Phone #: [phone] Date/Time: 08/06/2020 0330 This is a permanent part of the Medical Record [facility]
== END 2020-08-04 13:50 | disposition home or self-care (01) | DRG 682 ==
LOC: ERS 21:57 → ERHOLD 08-01 01:11 → 2SE 08-01 15:37 → OBSVTOIN 08-04 09:55
PROVIDERS: ADMIT Family Medicine; ATTEND Family Medicine
PROC: 3E1M39Z Irrigation of Peritoneal Cavity using Dialysate, Percutaneous Approach (ICD-10-PCS; principal; 2020-08-02)
DX: I12.0 Hypertensive chronic kidney disease with stage 5 chronic kidney disease or end stage renal disease (principal); N18.6 End stage renal disease; G93.41 Metabolic encephalopathy; M62.82 Rhabdomyolysis; R56.9 Unspecified convulsions; Z20.828 Contact with and (suspected) exposure to other viral communicable diseases; E10.22 Type 1 diabetes mellitus with diabetic chronic kidney disease; D63.1 Anemia in chronic kidney disease; R79.89 Other specified abnormal findings of blood chemistry; I44.1 Atrioventricular block, second degree; I49.3 Ventricular premature depolarization; I16.0 Hypertensive urgency; E10.43 Type 1 diabetes mellitus with diabetic autonomic (poly)neuropathy; K31.84 Gastroparesis; Z99.2 Dependence on renal dialysis; Z79.899 Other long term (current) drug therapy; Z79.4 Long term (current) use of insulin; Z98.42 Cataract extraction status, left eye; Z98.41 Cataract extraction status, right eye; Z94.9 Transplanted organ and tissue status, unspecified; Z89.422 Acquired absence of other left toe(s)
CPT/HCPCS: 36415; 36416; 70450; 70551; 71045; 74177; 80053; 82550; 82553; 83690; 83735; 83880; 84484; 85025; 85060; 85610; 85730; 86850; 86900; 86901; 87040; 87070; 87077; 87186; 87205; 87635; 89051; 90945; 93005; 93010; 95712; 95819; 95957; 96372; 96374; 96375; G0257; G0378; J0360; J1644; J1815; J2405; J2550; Q0162; Q9967; U0003

== ENCOUNTER 2020-10-03 16:35 | Emergency (ER) | payer MEDICARE ==
[2020-10-03 18:02] LABS: #Basophils 0.1 thou/uL (0.0-0.2); #Eosinphils 0.1 thou/uL (0.0-0.7); #Lymphocytes 1.1 thou/uL (1.20-3.40); #Monocytes 0.4 thou/uL (0.11-0.59); #Neutrophils 6.7 thou/uL (1.40-6.50); %Basophils 0.6 % (0.0-1.0); %Eosinophils 0.9 % (0.0-10.0); %Lymphocytes 12.8 % (21.0-51.0); %Monocytes 4.2 % (0.0-10.0); %Neutrophils 81.4 % (42.0-75.0); Hemoglobin 8.5 g/dL (14.0-18.0); Mean Corpuscular HGB CONC 32.8 g/dL (32.0-36.0); Mean Corpuscular Hemoglobin 29.5 pg (27.0-31.0); Mean Platelet Volume 7.4 fL (7.4-10.4); Platelet Count 257 thou/uL (130-400); White Blood Cell (WBC) Count 8.2 thou/uL (4.8-10.8)
[2020-10-03] MEDS ORDERED: Promethazine HCl 25 MG/ML VIAL ONE ×2 (18:04→21:34)
[2020-10-03 18:35] LABS: ALT (SGPT) 23 U/L (8-55); AST (SGOT) 30 U/L (5-34); Albumin 3.3 g/dL (3.5-5.0); Alkaline Phosphatase 55 U/L (40-110); Anion Gap 22 mmol/L (10-20); BUN (Urea Nitrogen) 75 mg/dL (8.9-20.6); Bilirubin, Total 0.6 mg/dL (0.2-1.2); Calc. Creatinine Clearance 0 mL/min (70-130); Calcium 8.8 mg/dL (7.8-10.44); Carbon Dioxide 23 mmol/L (22-29); Chloride 97 mmol/L (98-107); Globulin 3.3 g/dL (2.4-3.5); Glucose 146 mg/dL (70-105); Lipase 54 U/L (8-78); Potassium 4.4 mmol/L (3.5-5.1); Protein, Total 6.6 g/dL (6.0-8.3); Sodium 138 mmol/L (136-145)
[2020-10-03 20:31] LABS: Bilirubin Negative (Negative); Blood, Urine 2+ (Negative); Clarity Clear (Clear); Glucose, Urine (Dipstick) 150 mg/dL (Negative); Ketone, Urine Negative (Negative); Leukocyte 75 Leu/uL (Negative); Nitrite Negative (Negative); Protein, Urine (Dipstick) 600 mg/dL (Neg-Trace); Specific Gravity, Urine 1.012 (1.002-1.036); Squamous Epithelial None Seen HPF (0-3); Urobilinogen Normal mg/dL (Less than 2); WBC/HPF 21-50 HPF (0-3)
[2020-10-03 20:41] LABS: Bacteria/HPF Rare-Few HPF (None Seen)
== END 2020-10-03 23:39 | disposition home or self-care (01) ==
LOC: ERS 16:35
DX: R11.2 Nausea with vomiting, unspecified (principal); N39.0 Urinary tract infection, site not specified; D64.9 Anemia, unspecified; I12.0 Hypertensive chronic kidney disease with stage 5 chronic kidney disease or end stage renal disease; N18.6 End stage renal disease; E11.22 Type 2 diabetes mellitus with diabetic chronic kidney disease; Z99.2 Dependence on renal dialysis; Z79.4 Long term (current) use of insulin; Z79.899 Other long term (current) drug therapy
CPT/HCPCS: 36415; 36416; 80053; 81003; 81015; 82553; 83690; 83880; 84484; 85025; 93005; 96365; 96366; J2550

== ENCOUNTER 2020-10-05 18:35 | Emergency (ER) | payer MEDICARE ==
[2020-10-05 20:15] LABS: #Monocytes 0.3 thou/uL (0.11-0.59); #Neutrophils 5.1 thou/uL (1.40-6.50); %Basophils 0.3 % (0.0-1.0); %Eosinophils 0.7 % (0.0-10.0); %Lymphocytes 16.1 % (21.0-51.0); %Neutrophils 78.9 % (42.0-75.0); Hemoglobin 8.3 g/dL (14.0-18.0); Mean Corpuscular HGB CONC 33.1 g/dL (32.0-36.0); Mean Corpuscular Hemoglobin 29.5 pg (27.0-31.0); Mean Corpuscular Volume 89.2 fL (78.0-98.0); Mean Platelet Volume 7.3 fL (7.4-10.4); Platelet Count 258 thou/uL (130-400); RBC Distribution Width 15.6 % (11.5-14.5); White Blood Cell (WBC) Count 6.4 thou/uL (4.8-10.8)
[2020-10-05 20:54] LABS: ALT (SGPT) 23 U/L (8-55); AST (SGOT) 40 U/L (5-34); Albumin 3.2 g/dL (3.5-5.0); Alkaline Phosphatase 52 U/L (40-110); Anion Gap 22 mmol/L (10-20); BUN (Urea Nitrogen) 74 mg/dL (8.9-20.6); Bilirubin, Total 0.5 mg/dL (0.2-1.2); Calc. Creatinine Clearance 0 mL/min (70-130); Calcium 8.2 mg/dL (7.8-10.44); Carbon Dioxide 19 mmol/L (22-29); Chloride 97 mmol/L (98-107); Globulin 3.4 g/dL (2.4-3.5); Glucose 158 mg/dL (70-105); Lipase 33 U/L (8-78); Potassium 4.7 mmol/L (3.5-5.1); Protein, Total 6.6 g/dL (6.0-8.3); Sodium 133 mmol/L (136-145)
== END 2020-10-05 20:22 | disposition left against medical advice (07) ==
LOC: ERS 18:35
DX: Z53.21 Procedure and treatment not carried out due to patient leaving prior to being seen by health care provider (principal)
CPT/HCPCS: 36415; 80053; 83690; 85025

== ENCOUNTER 2020-10-06 15:33 | Emergency (ER) | payer MEDICARE ==
[2020-10-06 16:29] LABS: #Eosinphils 0.1 thou/uL (0.0-0.7); #Lymphocytes 1.1 thou/uL (1.20-3.40); #Monocytes 0.4 thou/uL (0.11-0.59); #Neutrophils 5.7 thou/uL (1.40-6.50); %Basophils 0.3 % (0.0-1.0); %Eosinophils 0.7 % (0.0-10.0); %Lymphocytes 15.5 % (21.0-51.0); %Monocytes 5.6 % (0.0-10.0); %Neutrophils 77.9 % (42.0-75.0); Hemoglobin 8.6 g/dL (14.0-18.0); Mean Corpuscular HGB CONC 33.2 g/dL (32.0-36.0); Mean Corpuscular Hemoglobin 29.6 pg (27.0-31.0); Mean Corpuscular Volume 89.1 fL (78.0-98.0); Mean Platelet Volume 7.1 fL (7.4-10.4); Platelet Count 260 thou/uL (130-400); RBC Distribution Width 15.3 % (11.5-14.5); Red Blood Cell (RBC) Count 2.92 mill/uL (4.70-6.10); White Blood Cell (WBC) Count 7.4 thou/uL (4.8-10.8)
[2020-10-06 16:49] LABS: ALT (SGPT) 22 U/L (8-55); AST (SGOT) 31 U/L (5-34); Albumin 3.2 g/dL (3.5-5.0); Alkaline Phosphatase 50 U/L (40-110); Anion Gap 18 mmol/L (10-20); BUN (Urea Nitrogen) 72 mg/dL (8.9-20.6); Bilirubin, Total 0.5 mg/dL (0.2-1.2); Calc. Creatinine Clearance 0 mL/min (70-130); Calcium 8.3 mg/dL (7.8-10.44); Carbon Dioxide 24 mmol/L (22-29); Chloride 95 mmol/L (98-107); Globulin 3.1 g/dL (2.4-3.5); Glucose 153 mg/dL (70-105); Protein, Total 6.3 g/dL (6.0-8.3); Sodium 133 mmol/L (136-145)
[2020-10-06] MEDS ORDERED: Ondansetron ODT 4 MG TAB ONE (18:40)
== END 2020-10-06 18:55 | disposition home or self-care (01) ==
LOC: ERS 15:33
DX: K29.70 Gastritis, unspecified, without bleeding (principal); R11.2 Nausea with vomiting, unspecified; I10 Essential (primary) hypertension; E11.9 Type 2 diabetes mellitus without complications; Z99.2 Dependence on renal dialysis; Z79.899 Other long term (current) drug therapy
CPT/HCPCS: 36415; 80053; 84484; 85025; 93005; Q0162

== ENCOUNTER 2020-10-25 00:33 | Inpatient (IN) | payer MEDICARE ==
[2020-10-25 01:47] LABS: #Eosinphils 0.2 thou/uL (0.0-0.7); #Lymphocytes 0.9 thou/uL (1.20-3.40); #Monocytes 0.5 thou/uL (0.11-0.59); #Neutrophils 7.4 thou/uL (1.40-6.50); %Basophils 0.5 % (0.0-1.0); %Eosinophils 2.2 % (0.0-10.0); %Lymphocytes 9.8 % (21.0-51.0); %Monocytes 5.3 % (0.0-10.0); %Neutrophils 82.3 % (42.0-75.0); Hemoglobin 9.6 g/dL (14.0-18.0); Mean Corpuscular HGB CONC 33.2 g/dL (32.0-36.0); Mean Corpuscular Hemoglobin 30.4 pg (27.0-31.0); Mean Corpuscular Volume 91.5 fL (78.0-98.0); Mean Platelet Volume 8.2 fL (7.4-10.4); Platelet Count 209 thou/uL (130-400); RBC Distribution Width 14.4 % (11.5-14.5); Red Blood Cell (RBC) Count 3.15 mill/uL (4.70-6.10)
[2020-10-25 02:00] LABS: ALT (SGPT) 20 U/L (8-55); AST (SGOT) 28 U/L (5-34); Albumin 3.2 g/dL (3.5-5.0); Alkaline Phosphatase 66 U/L (40-110); Anion Gap 21 mmol/L (10-20); BUN (Urea Nitrogen) 70 mg/dL (8.9-20.6); Bilirubin, Total 0.5 mg/dL (0.2-1.2); Calc. Creatinine Clearance 0 mL/min (70-130); Calcium 8.1 mg/dL (7.8-10.44); Carbon Dioxide 20 mmol/L (22-29); Chloride 97 mmol/L (98-107); Globulin 3.3 g/dL (2.4-3.5); Glucose 169 mg/dL (70-105); Lipase 41 U/L (8-78); Protein, Total 6.5 g/dL (6.0-8.3); Sodium 133 mmol/L (136-145)
[2020-10-25 02:28] LABS: CKMB 10.9 ng/mL (0-6.6)
[2020-10-25 03:10] LABS: SARS-CoV-2 NAA Rapid Test Not Detected (NotDetected)
[2020-10-25] MEDS ORDERED: Dextrose 50% Abboject 50 ML SYRINGE SLOW IVP PRN (03:11)
[2020-10-25] MEDS ORDERED: Dextrose 5% in Water 1,000 ML IV PRN (03:11)
[2020-10-25] MEDS ORDERED: Acetaminophen 325 MG TAB PO PRN (03:16)
[2020-10-25] MEDS ORDERED: Ondansetron PF 4 MG/2 ML Vial IVP PRN (03:16)
[2020-10-25] MEDS ORDERED: Ondansetron ODT 4 MG TAB PO PRN (03:16)
[2020-10-25 07:52] VITALS: BMI 28.3
[2020-10-25] MEDS: NIFEdipine XL 90 MG TAB PO SCH ×2 (08:11→08:23)
[2020-10-25] MEDS: Carvedilol 25 MG TAB PO SCH ×2 (08:11→16:59)
[2020-10-25] MEDS ORDERED: FLU VACC QS2020-21(6MOS UP)/PF 60 MCG/0.5 ML SYRINGE IM ONE (08:15)
[2020-10-25 12:30] LABS: Troponin I 0.054 ng/mL (< 0.028)
[2020-10-25 16:09] LABS: Troponin I 0.032 ng/mL (< 0.028)
[2020-10-26] MEDS ORDERED: NIFEdipine XL 60 MG TAB PO SCH (00:15)
[2020-10-26 05:09] LABS: ALT (SGPT) 14 U/L (8-55); AST (SGOT) 17 U/L (5-34); Albumin 2.6 g/dL (3.5-5.0); Alkaline Phosphatase 47 U/L (40-110); Anion Gap 15 mmol/L (10-20); BUN (Urea Nitrogen) 74 mg/dL (8.9-20.6); Bilirubin, Total 0.5 mg/dL (0.2-1.2); Calc. Creatinine Clearance 7 mL/min (70-130); Calcium 7.8 mg/dL (7.8-10.44); Carbon Dioxide 24 mmol/L (22-29); Chloride 98 mmol/L (98-107); Globulin 2.9 g/dL (2.4-3.5); Glucose 142 mg/dL (70-105); Protein, Total 5.5 g/dL (6.0-8.3); Sodium 133 mmol/L (136-145)
[2020-10-26 05:39] LABS: Hemoglobin 8.3 g/dL (14.0-18.0); Mean Corpuscular HGB CONC 32.5 g/dL (32.0-36.0); Mean Corpuscular Hemoglobin 30.2 pg (27.0-31.0); Mean Corpuscular Volume 92.9 fL (78.0-98.0); Mean Platelet Volume 8.6 fL (7.4-10.4); Platelet Count 192 thou/uL (130-400); RBC Distribution Width 14.4 % (11.5-14.5); Red Blood Cell (RBC) Count 2.75 mill/uL (4.70-6.10); White Blood Cell (WBC) Count 6.2 thou/uL (4.8-10.8)
[2020-10-26 05:41] LABS: Band 1 % (5-11); Elliptocytes SLIGHT = 2-5 cells (100X) (0-1/hpf); Eosinophils 2 % (0-10); Lymphocytes 17 % (21-51); MDiff Complete? YES; Monocytes 6 % (0-10); Neutrophil 73 % (42-75)
[2020-10-26] MEDS: Carvedilol 25 MG TAB PO SCH (10:33)
[2020-10-26 10:43] VITALS: BP 165/86; TEMP 98
[2020-10-26] MEDS: NIFEdipine XL 90 MG TAB PO SCH (11:43)
== END 2020-10-26 12:54 | disposition home or self-care (01) | DRG 640 ==
LOC: ERS 00:33 → 2NO 02:49
PROVIDERS: ADMIT Internal Medicine; ATTEND Internal Medicine
PROC: 3E1M39Z Irrigation of Peritoneal Cavity using Dialysate, Percutaneous Approach (ICD-10-PCS; principal; 2020-10-25)
DX: E87.70 Fluid overload, unspecified (principal); J81.0 Acute pulmonary edema; N18.6 End stage renal disease; I12.0 Hypertensive chronic kidney disease with stage 5 chronic kidney disease or end stage renal disease; I24.8 Other forms of acute ischemic heart disease; E10.22 Type 1 diabetes mellitus with diabetic chronic kidney disease; D64.9 Anemia, unspecified; Z20.822 Contact with and (suspected) exposure to COVID-19; Z90.49 Acquired absence of other specified parts of digestive tract
CPT/HCPCS: 36415; 36416; 71045; 80053; 82550; 82553; 83690; 83880; 84484; 85007; 85025; 85027; 90945; 93005; G0257; U0002